=== PATIENT | male | born 1960 | race Caucasian/White ===

== ENCOUNTER 2023-10-29 13:44 | Inpatient (IN) | payer OTHER ==
[~2023-10-29] VITALS: Ht 177.8 cm; Wt 67.6 kg
[2023-10-29] MEDS ORDERED: OLANZAPINE 10 MG VIAL IM ONE ×4 (13:45→16:16)
[2023-10-29 13:58] LABS: BASOPHILS % (AUTO) 0.8 % (0.0-2.0); EOSINOPHILS # (AUTO) 0.1 K/uL (0.0-0.7); EOSINOPHILS % (AUTO) 2.2 % (0.0-7.0); HEMOGLOBIN 12.5 g/dL (12.5-16.3); LYMPHOCYTES # (AUTO) 1.7 K/uL (0.8-4.8); LYMPHOCYTES % (AUTO) 26.6 % (20.5-51.5); MEAN CORPUSCULAR HEMOGLOBIN 28.4 uug (23.8-33.4); MEAN CORPUSCULAR HGB CONC 33 g/dL (32.5-36.3); MEAN CORPUSCULAR VOLUME 86.7 fL (73.0-96.2); MONOCYTES # (AUTO) 0.7 K/uL (0.1-1.30); MONOCYTES % (AUTO) 10.2 % (0.0-11.0); NEUTROPHILS # (AUTO) 3.9 K/uL (1.8-8.9); NEUTROPHILS % (AUTO) 60.2 % (38.5-71.5); PLATELET COUNT (AUTO) 341 K/uL (152-348); RED BLOOD CELL COUNT(AUTO) 4.39 MIL/uL (4.06-5.63); RED CELL DISTRIBUTION WIDTH 16.2 % (12.1-16.2); WHITE BLOOD COUNT (AUTO) 6.5 K/uL (3.6-10.2)
[2023-10-29 14:16] LABS: DIFFERENTIAL COMMENT 1
[2023-10-29 14:29] LABS: ETHANOL < 3 MG/DL (0-10)
[2023-10-29 14:50] LABS: CALCIUM 8.7 mg/dL (8.5-10.1); CARBON DIOXIDE 29 mmol/L (21-32); CHLORIDE 103 mmol/L (98-107); CREATININE 0.8 mg/dL (0.6-1.3); GLUCOSE 121 mg/dL (74-106); POTASSIUM 3.7 mmol/L (3.5-5.1); SODIUM SERUM 140 mmol/L (136-145); UREA NITROGEN, BLOOD 20 mg/dL (7-18)
[2023-10-29 14:56] LABS: ALANINE AMINOTRANSFERASE 16 U/L (16-63); ALBUMIN 3.1 g/dL (3.4-5.0); ALKALINE PHOSPHATASE 182 U/L (50-136); ASPARTATE AMINOTRANSFERASE 20 U/L (15-37); BILIRUBIN,DIRECT 0.1 mg/dL (0.0-0.2); BILIRUBIN,TOTAL 0.3 mg/dL (0.2-1.0); TOTAL PROTEIN, SERUM 8.7 g/dL (6.4-8.2)
[2023-10-29] MEDS ORDERED: PIPERACILLIN SODIUM/TAZOBACTAM 3.375 G in IV DEXTROSE 5% 50 ML IV ONE (15:00)
[2023-10-29] MEDS ORDERED: VANCOMYCIN IV 1,000 MG in IV DEXTROSE 5% 250 ML IV ONE (15:00)
[2023-10-29] MEDS ORDERED: IV NORMAL SALINE 1000 ML BAG IV ONE ×2 (15:00→19:00)
[2023-10-29 15:08] LABS: ACETAMINOPHEN < 2.0 ug/mL (10-30)
[2023-10-29] MEDS ORDERED: PIPERACILLIN/TAZOBACTAM/D5W 50 ML IV ONE (15:43)
[2023-10-29] MEDS ORDERED: VANCOMYCIN IV 200 ML ONE (15:43)
[2023-10-29] MEDS ORDERED: LORA0.5T48 PO (15:58)
[2023-10-29] MEDS ORDERED: ONDA-104 PO (15:58)
[2023-10-29] MEDS ORDERED: CRAN450T9 PO (15:58)
[2023-10-29] MEDS ORDERED: POLY119P17 PO (15:58)
[2023-10-29] MEDS ORDERED: DIVA125C5 PO (15:58)
[2023-10-29] MEDS ORDERED: ASCO500C18 PO (15:58)
[2023-10-29] MEDS ORDERED: TERA5CAP4 PO (15:58)
[2023-10-29] MEDS ORDERED: QUET25TA PO (15:58)
[2023-10-29] MEDS ORDERED: DOCU100T2 PO (15:58)
[2023-10-29] MEDS ORDERED: BISA10SU95 RC (15:58)
[2023-10-29] MEDS ORDERED: CARB100C9 PO (15:58)
[2023-10-29] MEDS ORDERED: LACT1CAP69 PO (15:58)
[2023-10-29] MEDS ORDERED: MULT-594 PO (15:58)
[2023-10-29] MEDS ORDERED: TRAZ-182 PO (15:58)
[2023-10-29] MEDS ORDERED: RIVA20TA PO (15:58)
[2023-10-29] MEDS ORDERED: HYDR-4209 PO (15:58)
[2023-10-29] MEDS ORDERED: FINA5TAB11 PO (15:58)
[2023-10-29] MEDS ORDERED: ACET325C7 PO (15:58)
[2023-10-29] MEDS ORDERED: LORAZEPAM 2 MG/1 ML VIAL IM ONE (16:15)
[2023-10-29] MEDS ORDERED: LORAZEPAM 2 MG/1 ML VIAL ONE ×2 (16:16→17:13)
[2023-10-29] MEDS ORDERED: MORPHINE SULFATE 4 MG/1 ML DISP.SYRIN ONE (16:21)
[2023-10-29] MEDS ORDERED: ONDANSETRON 4 MG/2 ML VIAL ONE (16:21)
[2023-10-29] MEDS ORDERED: MORPHINE SULFATE 4 MG/1 ML DISP.SYRIN IV ONE (16:30)
[2023-10-29] MEDS ORDERED: ONDANSETRON 4 MG/2 ML VIAL IV ONE (16:30)
[2023-10-29] MEDS ORDERED: LORAZEPAM 2 MG/1 ML VIAL IV ONE (17:15)
[2023-10-29] MEDS ORDERED: REMEDY ESSENTIAL ZINC PASTE 113 GM TP PRN (19:00)
[2023-10-29] MEDS ORDERED: ONDANSETRON 4 MG/2 ML VIAL IV PRN (19:00)
[2023-10-29] MEDS ORDERED: ACETAMINOPHEN 325 MG TABLET PO PRN (19:00)
[2023-10-29] MEDS ORDERED: MAGNESIUM HYDROXIDE 30 ML LIQUID UDC PO PRN (19:00)
[2023-10-29] MEDS ORDERED: LORAZEPAM 2 MG/1 ML VIAL IV PRN (19:15)
[2023-10-29] MEDS ORDERED: PIPERACILLIN SODIUM/TAZOBACTAM 4.5 G in IV DEXTROSE 5% 50 ML IV SCH (22:00)
[2023-10-29 22:15] VITALS: BP 142/69; TEMP 98.8; O2SAT 93
[2023-10-29] MEDS ORDERED: PIPERACILLIN/TAZO 4.5 GM VIAL IV ONE ×2 (23:18)
[2023-10-29] MEDS: IV 1/2NS 1000 ML 1,000 ML IV PRN (23:30)
[2023-10-29] MEDS: PIPERACILLIN SODIUM/TAZOBACTAM 4.5 G in IV DEXTROSE 5% 50 ML IV SCH (23:30)
[2023-10-30 04:00] VITALS: BP 113/71; TEMP 98.8; O2SAT 93
[2023-10-30] MEDS: PIPERACILLIN SODIUM/TAZOBACTAM 4.5 G in IV DEXTROSE 5% 50 ML IV SCH (05:50)
[2023-10-30] MEDS ORDERED: LORAZEPAM 2 MG/1 ML VIAL IV PRN (06:00)
[2023-10-30 07:45] LABS: ALBUMIN 2.4 g/dL (3.4-5.0); BILIRUBIN,TOTAL 0.6 mg/dL (0.2-1.0); CALCIUM 8.1 mg/dL (8.5-10.1); CREATININE 0.7 mg/dL (0.6-1.3); MAGNESIUM 1.9 mg/dL (1.8-2.4); PHOSPHOROUS 3.7 mg/dL (2.5-4.9); POTASSIUM 3.4 mmol/L (3.5-5.1); TOTAL PROTEIN, SERUM 6.7 g/dL (6.4-8.2)
[2023-10-30 07:55] LABS: BASOPHILS % (AUTO) 0.6 % (0.0-2.0); EOSINOPHILS # (AUTO) 0.2 K/uL (0.0-0.7); HEMATOCRIT 30.3 % (36.7-47.1); HEMOGLOBIN 10.2 g/dL (12.5-16.3); LYMPHOCYTES # (AUTO) 1.5 K/uL (0.8-4.8); LYMPHOCYTES % (AUTO) 17.3 % (20.5-51.5); MEAN CORPUSCULAR HEMOGLOBIN 29.1 uug (23.8-33.4); MEAN CORPUSCULAR HGB CONC 34 g/dL (32.5-36.3); MEAN CORPUSCULAR VOLUME 86.3 fL (73.0-96.2); MONOCYTES # (AUTO) 0.9 K/uL (0.1-1.30); NEUTROPHILS # (AUTO) 5.9 K/uL (1.8-8.9); NEUTROPHILS % (AUTO) 70.1 % (38.5-71.5); PLATELET COUNT (AUTO) 307 K/uL (152-348); RED BLOOD CELL COUNT(AUTO) 3.51 MIL/uL (4.06-5.63); RED CELL DISTRIBUTION WIDTH 16.3 % (12.1-16.2); WHITE BLOOD COUNT (AUTO) 8.5 K/uL (3.6-10.2)
[2023-10-30 08:00] VITALS: BP 94/67; TEMP 98.8; O2SAT 99
[2023-10-30 08:08] LABS: DIFFERENTIAL COMMENT 1
[2023-10-30] MEDS: MORPHINE SULFATE 2 MG/1 ML DISP.SYRIN IV PRN (09:26)
[2023-10-30] MEDS ORDERED: CLONAZEPAM ODT/TDIS 0.5 MG TAB.RAPDIS SL PRN (10:15)
[2023-10-30] MEDS ORDERED: POTASSIUM CHLORIDE 20 MEQ POWDER PACKET GT ONE (10:45)
[2023-10-30] MEDS: [UNRECOGNIZED DRUG - OTHER] SL PRN ×2 (10:45→20:35)
[2023-10-30] MEDS: CLONAZEPAM 0.25 MG SL PRN ×2 (10:45→20:35)
[2023-10-30 11:52] VITALS: BP 123/76; TEMP 98.2; O2SAT 94
[2023-10-30] MEDS ORDERED: OLANZAPINE 10 MG VIAL IM ONE (12:00)
[2023-10-30] MEDS: IV 1/2NS 1000 ML 1,000 ML IV PRN (13:35)
[2023-10-30] MEDS: PIPERACILLIN SODIUM/TAZOBACTAM 3.375 G in IV DEXTROSE 5% 100 ML IV SCH ×2 (13:37→22:48)
[2023-10-30] MEDS ORDERED: [UNRECOGNIZED DRUG - CODE] PO (14:31)
[2023-10-30 16:08] VITALS: BP 127/74; TEMP 97.6; O2SAT 95
[2023-10-30 20:47] VITALS: BP 115/69; TEMP 98.2; O2SAT 96
[2023-10-31 04:55] VITALS: BP 130/73; TEMP 98.3; O2SAT 93
[2023-10-31] MEDS: PIPERACILLIN SODIUM/TAZOBACTAM 3.375 G in IV DEXTROSE 5% 100 ML IV SCH ×3 (06:21→22:00)
[2023-10-31] MEDS ORDERED: OLANZAPINE 10 MG VIAL IM ONE (08:00)
[2023-10-31 08:05] LABS: BASOPHILS % (AUTO) 0.6 % (0.0-2.0); EOSINOPHILS # (AUTO) 0.3 K/uL (0.0-0.7); EOSINOPHILS % (AUTO) 3.9 % (0.0-7.0); HEMATOCRIT 33.8 % (36.7-47.1); HEMOGLOBIN 11.2 g/dL (12.5-16.3); LYMPHOCYTES # (AUTO) 1.7 K/uL (0.8-4.8); LYMPHOCYTES % (AUTO) 26.2 % (20.5-51.5); MEAN CORPUSCULAR HEMOGLOBIN 28.6 uug (23.8-33.4); MEAN CORPUSCULAR HGB CONC 33 g/dL (32.5-36.3); MEAN CORPUSCULAR VOLUME 85.9 fL (73.0-96.2); MONOCYTES # (AUTO) 0.8 K/uL (0.1-1.30); MONOCYTES % (AUTO) 11.8 % (0.0-11.0); NEUTROPHILS # (AUTO) 3.8 K/uL (1.8-8.9); NEUTROPHILS % (AUTO) 57.5 % (38.5-71.5); PLATELET COUNT (AUTO) 306 K/uL (152-348); RED BLOOD CELL COUNT(AUTO) 3.93 MIL/uL (4.06-5.63); RED CELL DISTRIBUTION WIDTH 16.1 % (12.1-16.2); WHITE BLOOD COUNT (AUTO) 6.6 K/uL (3.6-10.2)
[2023-10-31 08:25] LABS: DIFFERENTIAL COMMENT 1
[2023-10-31 08:59] LABS: CALCIUM 8.2 mg/dL (8.5-10.1); CREATININE 0.7 mg/dL (0.6-1.3); POTASSIUM 3.3 mmol/L (3.5-5.1)
[2023-10-31] MEDS ORDERED: POLYETHYLENE GLYCOL 3350 238 GM POWDER PO PRN (10:15)
[2023-10-31] MEDS ORDERED: BISACODYL 10 MG SUPP.RECT RC PRN (10:15)
[2023-10-31] MEDS ORDERED: MIRALAX 17 GM POWD.PACK PO PRN (11:02)
[2023-10-31] MEDS ORDERED: DIVALPROEX SPRINKLE 125 MG CAP.SPRINK PO SCH (11:30)
[2023-10-31] MEDS: DIVALPROEX SPRINKLE 125 MG CAP.SPRINK PO SCH ×2 (11:43→16:46)
[2023-10-31] MEDS: FINASTERIDE 5 MG TABLET PO SCH (11:43)
[2023-10-31] MEDS: OLANZAPINE 2.5 MG TABLET PO SCH ×2 (11:43→16:47)
[2023-10-31 12:00] VITALS: BP 111/72; TEMP 98; O2SAT 95
[2023-10-31] MEDS: CARBAMAZEPINE 200 MG TABLET PO SCH ×2 (13:42→16:47)
[2023-10-31] MEDS: IV 1/2NS 1000 ML 1,000 ML IV PRN (13:43)
[2023-10-31] MEDS: MUPIROCIN 2% OINT 22 GM TUBE NS SCH ×2 (15:07→21:02)
[2023-10-31 16:39] VITALS: BP 120/75; TEMP 98.8; O2SAT 94
[2023-10-31] MEDS ORDERED: POTASSIUM CHLORIDE 20 MEQ TAB.PRT.SR PO ONE (17:00)
[2023-10-31] MEDS: RIVAROXABAN 10 MG TABLET PO SCH (17:33)
[2023-10-31 20:00] VITALS: BP 132/90; TEMP 97.8; O2SAT 94
[2023-10-31] MEDS: ACIDOPHILUS/BULGARICUS CHEW TAB PO SCH (20:43)
[2023-10-31] MEDS: DOCUSATE SODIUM 100 MG CAPSULE PO SCH (20:43)
[2023-10-31] MEDS: TRAZODONE 50 MG TABLET PO SCH (20:44)
[2023-10-31] MEDS: TERAZOSIN 5 MG CAPSULE PO SCH (20:44)
[2023-10-31] MEDS ORDERED: MUPIROCIN 2% OINT 22 GM TUBE NS SCH (21:00)
[2023-10-31] MEDS: LORAZEPAM 0.5 MG TABLET PO PRN (21:28)
[2023-11-01] MEDS: MORPHINE SULFATE 2 MG/1 ML DISP.SYRIN IV PRN (01:26)
[2023-11-01 04:00] VITALS: BP 126/68; TEMP 98; O2SAT 100
[2023-11-01] MEDS: PIPERACILLIN SODIUM/TAZOBACTAM 3.375 G in IV DEXTROSE 5% 100 ML IV SCH ×3 (06:18→23:01)
[2023-11-01] MEDS ORDERED: BISACODYL 10 MG SUPP.RECT RC PRN (06:39)
[2023-11-01 08:21] LABS: CALCIUM 8.3 mg/dL (8.5-10.1); CREATININE 0.8 mg/dL (0.6-1.3)
[2023-11-01 08:34] LABS: BASOPHILS % (AUTO) 0.6 % (0.0-2.0); EOSINOPHILS # (AUTO) 0.1 K/uL (0.0-0.7); EOSINOPHILS % (AUTO) 1.6 % (0.0-7.0); HEMOGLOBIN 11.2 g/dL (12.5-16.3); LYMPHOCYTES # (AUTO) 1.3 K/uL (0.8-4.8); LYMPHOCYTES % (AUTO) 18.2 % (20.5-51.5); MEAN CORPUSCULAR HEMOGLOBIN 28.5 uug (23.8-33.4); MEAN CORPUSCULAR HGB CONC 33 g/dL (32.5-36.3); MEAN CORPUSCULAR VOLUME 86.6 fL (73.0-96.2); MONOCYTES # (AUTO) 0.8 K/uL (0.1-1.30); MONOCYTES % (AUTO) 10.4 % (0.0-11.0); NEUTROPHILS % (AUTO) 69.2 % (38.5-71.5); PLATELET COUNT (AUTO) 308 K/uL (152-348); RED BLOOD CELL COUNT(AUTO) 3.93 MIL/uL (4.06-5.63); RED CELL DISTRIBUTION WIDTH 16.1 % (12.1-16.2); WHITE BLOOD COUNT (AUTO) 7.2 K/uL (3.6-10.2)
[2023-11-01 08:35] LABS: DIFFERENTIAL COMMENT 1
[2023-11-01] MEDS: MUPIROCIN 2% OINT 22 GM TUBE NS SCH ×2 (09:00→22:04)
[2023-11-01] MEDS: DOCUSATE SODIUM 100 MG CAPSULE PO SCH ×2 (09:00→21:22)
[2023-11-01] MEDS ORDERED: OLANZAPINE 10 MG VIAL IM ONE (09:15)
[2023-11-01] MEDS: MULTIVIT, IRON, MIN NO. 8, FA TABLET PO SCH (09:36)
[2023-11-01] MEDS: OLANZAPINE 2.5 MG TABLET PO SCH ×5 (09:36→21:22)
[2023-11-01] MEDS: ACIDOPHILUS/BULGARICUS CHEW TAB PO SCH ×2 (09:36→21:22)
[2023-11-01] MEDS: ASCORBIC ACID 500 MG TABLET PO SCH (09:36)
[2023-11-01] MEDS: FINASTERIDE 5 MG TABLET PO SCH (09:36)
[2023-11-01] MEDS: CARBAMAZEPINE 200 MG TABLET PO SCH ×3 (09:37→17:40)
[2023-11-01] MEDS: DIVALPROEX SPRINKLE 125 MG CAP.SPRINK PO SCH ×2 (09:37→17:40)
[2023-11-01] MEDS: POTASSIUM CHLORIDE 10 MEQ TAB.PRT.SR PO SCH ×2 (10:52→12:45)
[2023-11-01 12:00] VITALS: BP 130/65; TEMP 98; O2SAT 100
[2023-11-01 12:14] LABS: THYROID STIMULATING HORMONE 1.514 mIU/mL (0.358-3.740)
[2023-11-01 15:46] VITALS: BP 119/60; TEMP 98; O2SAT 98
[2023-11-01] MEDS: RIVAROXABAN 10 MG TABLET PO SCH (17:39)
[2023-11-01 20:00] VITALS: BP 128/77; TEMP 98.8; O2SAT 100
[2023-11-01] MEDS: TRAZODONE 50 MG TABLET PO SCH (21:22)
[2023-11-01] MEDS: TERAZOSIN 5 MG CAPSULE PO SCH (21:29)
[2023-11-01] MEDS: LORAZEPAM 0.5 MG TABLET PO PRN (21:30)
[2023-11-01] MEDS: IV 1/2NS 1000 ML 1,000 ML IV PRN (22:14)
[2023-11-02 04:00] VITALS: BP 120/74; TEMP 98.2; O2SAT 93
[2023-11-02] MEDS: PIPERACILLIN SODIUM/TAZOBACTAM 3.375 G in IV DEXTROSE 5% 100 ML IV SCH ×3 (05:40→21:28)
[2023-11-02 07:31] LABS: CALCIUM 8.1 mg/dL (8.5-10.1); CREATININE 0.7 mg/dL (0.6-1.3)
[2023-11-02] MEDS: DOCUSATE SODIUM 100 MG CAPSULE PO SCH ×2 (09:00→21:11)
[2023-11-02] MEDS: OLANZAPINE 2.5 MG TABLET PO SCH ×4 (09:00→17:14)
[2023-11-02] MEDS: MULTIVIT, IRON, MIN NO. 8, FA TABLET PO SCH (09:00)
[2023-11-02 09:04] LABS: POTASSIUM 2.8 mmol/L (3.5-5.1)
[2023-11-02] MEDS: CARBAMAZEPINE 200 MG TABLET PO SCH ×4 (09:06→17:15)
[2023-11-02] MEDS: ACIDOPHILUS/BULGARICUS CHEW TAB PO SCH ×2 (09:06→21:12)
[2023-11-02] MEDS: FINASTERIDE 5 MG TABLET PO SCH (09:07)
[2023-11-02] MEDS: DIVALPROEX SPRINKLE 125 MG CAP.SPRINK PO SCH ×2 (09:07→17:15)
[2023-11-02] MEDS: ASCORBIC ACID 500 MG TABLET PO SCH (09:07)
[2023-11-02] MEDS: MUPIROCIN 2% OINT 22 GM TUBE NS SCH ×2 (09:08→21:10)
[2023-11-02] MEDS: POTASSIUM CHLORIDE 20 MEQ POWDER PACKET PO ONE ×2 (09:15→09:20)
[2023-11-02] MEDS: POTASSIUM CHLORIDE 50 ML IV SCH ×4 (09:20→12:52)
[2023-11-02 12:00] VITALS: BP 152/81; TEMP 97.2; O2SAT 97
[2023-11-02 16:00] VITALS: BP 158/80; TEMP 97.2; O2SAT 97
[2023-11-02] MEDS: RIVAROXABAN 10 MG TABLET PO SCH ×2 (17:20→18:00)
[2023-11-02 20:00] VITALS: BP 127/74; TEMP 98; O2SAT 96
[2023-11-02] MEDS: TERAZOSIN 5 MG CAPSULE PO SCH (21:12)
[2023-11-02] MEDS: TRAZODONE 50 MG TABLET PO SCH (21:12)
[2023-11-03] MEDS: LORAZEPAM 0.5 MG TABLET PO PRN ×2 (01:25→23:45)
[2023-11-03 04:00] VITALS: BP 119/67; TEMP 98.8; O2SAT 92
[2023-11-03] MEDS: PIPERACILLIN SODIUM/TAZOBACTAM 3.375 G in IV DEXTROSE 5% 100 ML IV SCH ×2 (06:07→15:02)
[2023-11-03 06:28] LABS: CALCIUM 7.8 mg/dL (8.5-10.1); CREATININE 0.7 mg/dL (0.6-1.3)
[2023-11-03 06:36] LABS: POTASSIUM 2.1 mmol/L (3.5-5.1)
[2023-11-03 06:52] LABS: BASOPHILS % (AUTO) 0.2 % (0.0-2.0); DIFFERENTIAL COMMENT 1; HEMATOCRIT 33.5 % (36.7-47.1); HEMOGLOBIN 11.1 g/dL (12.5-16.3); LYMPHOCYTES % (AUTO) 5.8 % (20.5-51.5); MEAN CORPUSCULAR HEMOGLOBIN 28.5 uug (23.8-33.4); MEAN CORPUSCULAR HGB CONC 33 g/dL (32.5-36.3); MEAN CORPUSCULAR VOLUME 86.3 fL (73.0-96.2); MONOCYTES # (AUTO) 1.2 K/uL (0.1-1.30); MONOCYTES % (AUTO) 6.9 % (0.0-11.0); NEUTROPHILS # (AUTO) 14.7 K/uL (1.8-8.9); NEUTROPHILS % (AUTO) 87.1 % (38.5-71.5); PLATELET COUNT (AUTO) 294 K/uL (152-348); RED BLOOD CELL COUNT(AUTO) 3.88 MIL/uL (4.06-5.63); RED CELL DISTRIBUTION WIDTH 16.4 % (12.1-16.2); WHITE BLOOD COUNT (AUTO) 16.9 K/uL (3.6-10.2)
[2023-11-03] MEDS: IV 1/2NS 1000 ML 1,000 ML IV PRN (08:04)
[2023-11-03] MEDS: MUPIROCIN 2% OINT 22 GM TUBE NS SCH ×2 (09:38→21:18)
[2023-11-03] MEDS: FINASTERIDE 5 MG TABLET PO SCH (09:39)
[2023-11-03] MEDS: DOCUSATE SODIUM 100 MG CAPSULE PO SCH ×2 (09:39→21:18)
[2023-11-03] MEDS: MULTIVIT, IRON, MIN NO. 8, FA TABLET PO SCH (09:39)
[2023-11-03] MEDS: ASCORBIC ACID 500 MG TABLET PO SCH (09:39)
[2023-11-03] MEDS: DIVALPROEX SPRINKLE 125 MG CAP.SPRINK PO SCH ×2 (09:40→16:31)
[2023-11-03] MEDS: OLANZAPINE 2.5 MG TABLET PO SCH ×4 (09:43→21:20)
[2023-11-03] MEDS: ACIDOPHILUS/BULGARICUS CHEW TAB PO SCH ×2 (09:43→21:19)
[2023-11-03] MEDS: POTASSIUM CHLORIDE 50 ML IV SCH ×6 (09:56→15:19)
[2023-11-03] MEDS: CARBAMAZEPINE 200 MG TABLET PO SCH ×3 (10:58→16:31)
[2023-11-03 12:00] VITALS: BP 129/61; TEMP 97.6; O2SAT 98
[2023-11-03] MEDS ORDERED: OLANZAPINE 10 MG VIAL IM ONE (12:45)
[2023-11-03] MEDS ORDERED: LORAZEPAM 2 MG/1 ML VIAL IV PRN (15:18)
[2023-11-03 15:21] LABS: CALCIUM 8.1 mg/dL (8.5-10.1); CARBON DIOXIDE 23 mmol/L (21-32); CHLORIDE 110 mmol/L (98-107); CREATININE 0.6 mg/dL (0.6-1.3); GLUCOSE 91 mg/dL (74-106); SODIUM SERUM 144 mmol/L (136-145); UREA NITROGEN, BLOOD 21 mg/dL (7-18)
[2023-11-03 15:53] LABS: POTASSIUM 2.5 mmol/L (3.5-5.1)
[2023-11-03 16:00] VITALS: BP 134/63; TEMP 97; O2SAT 96
[2023-11-03] MEDS ORDERED: POTASSIUM CHLORIDE 10 MEQ in IV 1/2NS 1000 ML 1,000 ML IV PRN (16:25)
[2023-11-03] MEDS: RIVAROXABAN 10 MG TABLET PO SCH (17:25)
[2023-11-03 20:00] VITALS: BP 126/75; TEMP 97.6; O2SAT 99
[2023-11-03] MEDS: TRAZODONE 50 MG TABLET PO SCH (21:19)
[2023-11-03] MEDS: TERAZOSIN 5 MG CAPSULE PO SCH (21:20)
[2023-11-04 04:00] VITALS: BP 121/72; TEMP 97.8; O2SAT 90
[2023-11-04 07:09] LABS: BASOPHILS % (AUTO) 0.2 % (0.0-2.0); EOSINOPHILS # (AUTO) 0.1 K/uL (0.0-0.7); EOSINOPHILS % (AUTO) 1.3 % (0.0-7.0); HEMATOCRIT 31.8 % (36.7-47.1); HEMOGLOBIN 10.5 g/dL (12.5-16.3); LYMPHOCYTES # (AUTO) 1.3 K/uL (0.8-4.8); LYMPHOCYTES % (AUTO) 13.6 % (20.5-51.5); MEAN CORPUSCULAR HEMOGLOBIN 28.6 uug (23.8-33.4); MEAN CORPUSCULAR HGB CONC 33 g/dL (32.5-36.3); MEAN CORPUSCULAR VOLUME 86.4 fL (73.0-96.2); MONOCYTES # (AUTO) 0.8 K/uL (0.1-1.30); MONOCYTES % (AUTO) 8.9 % (0.0-11.0); NEUTROPHILS # (AUTO) 7.1 K/uL (1.8-8.9); PLATELET COUNT (AUTO) 293 K/uL (152-348); RED BLOOD CELL COUNT(AUTO) 3.68 MIL/uL (4.06-5.63); RED CELL DISTRIBUTION WIDTH 16.1 % (12.1-16.2); WHITE BLOOD COUNT (AUTO) 9.4 K/uL (3.6-10.2)
[2023-11-04 07:41] LABS: ALANINE AMINOTRANSFERASE 19 U/L (16-63); ALBUMIN 2.2 g/dL (3.4-5.0); ALKALINE PHOSPHATASE 105 U/L (50-136); ASPARTATE AMINOTRANSFERASE 18 U/L (15-37); BILIRUBIN,TOTAL 0.5 mg/dL (0.2-1.0); CALCIUM 8.1 mg/dL (8.5-10.1); CARBAMAZEPINE (TEGRETOL) 2.9 ug/mL (4.0-12.0); CARBON DIOXIDE 25 mmol/L (21-32); CHLORIDE 111 mmol/L (98-107); CREATININE 0.6 mg/dL (0.6-1.3); GLUCOSE 95 mg/dL (74-106); MAGNESIUM 1.9 mg/dL (1.8-2.4); PHOSPHOROUS 2.5 mg/dL (2.5-4.9); SODIUM SERUM 145 mmol/L (136-145); TOTAL PROTEIN, SERUM 6.8 g/dL (6.4-8.2); UREA NITROGEN, BLOOD 23 mg/dL (7-18); VALPROIC ACID 6 ug/mL (50-100)
[2023-11-04 07:46] LABS: DIFFERENTIAL COMMENT 1
[2023-11-04 07:54] LABS: POTASSIUM 2.3 mmol/L (3.5-5.1)
[2023-11-04] MEDS: LORAZEPAM 0.5 MG TABLET PO PRN (10:35)
[2023-11-04] MEDS: MULTIVIT, IRON, MIN NO. 8, FA TABLET PO SCH (10:36)
[2023-11-04] MEDS: FINASTERIDE 5 MG TABLET PO SCH (10:36)
[2023-11-04] MEDS: ACIDOPHILUS/BULGARICUS CHEW TAB PO SCH ×2 (10:36→21:00)
[2023-11-04] MEDS: CARBAMAZEPINE 200 MG TABLET PO SCH ×3 (10:36→16:31)
[2023-11-04] MEDS: DOCUSATE SODIUM 100 MG CAPSULE PO SCH ×2 (10:36→21:00)
[2023-11-04] MEDS: ASCORBIC ACID 500 MG TABLET PO SCH (10:36)
[2023-11-04] MEDS: OLANZAPINE 2.5 MG TABLET PO SCH (10:36)
[2023-11-04] MEDS: DIVALPROEX SPRINKLE 125 MG CAP.SPRINK PO SCH (10:37)
[2023-11-04] MEDS ORDERED: POTASSIUM CHLORIDE 20 MEQ POWDER PACKET PO ONE ×3 (11:00→17:00)
[2023-11-04 11:30] VITALS: BP 106/69; TEMP 97.2; O2SAT 92
[2023-11-04] MEDS: risperiDONE-M 0.5 MG TAB.RAPDIS PO SCH ×3 (13:13→21:00)
[2023-11-04] MEDS: LORAZEPAM 0.5 MG TABLET PO SCH ×3 (13:13→21:00)
[2023-11-04] MEDS: MUPIROCIN 2% OINT 22 GM TUBE NS SCH ×2 (13:14→21:00)
[2023-11-04] MEDS: IV 1/2NS 1000 ML 1,000 ML IV PRN (14:10)
[2023-11-04 16:15] VITALS: BP 99/62; TEMP 98.1; O2SAT 92
[2023-11-04 16:19] LABS: ALANINE AMINOTRANSFERASE 21 U/L (16-63); ALBUMIN 2.1 g/dL (3.4-5.0); ALKALINE PHOSPHATASE 97 U/L (50-136); ASPARTATE AMINOTRANSFERASE 13 U/L (15-37); BILIRUBIN,TOTAL 0.3 mg/dL (0.2-1.0); CALCIUM 7.9 mg/dL (8.5-10.1); CARBON DIOXIDE 25 mmol/L (21-32); CHLORIDE 110 mmol/L (98-107); CREATININE 0.5 mg/dL (0.6-1.3); GLUCOSE 120 mg/dL (74-106); MAGNESIUM 1.8 mg/dL (1.8-2.4); POTASSIUM 3.2 mmol/L (3.5-5.1); SODIUM SERUM 142 mmol/L (136-145); TOTAL PROTEIN, SERUM 6.4 g/dL (6.4-8.2); UREA NITROGEN, BLOOD 20 mg/dL (7-18)
[2023-11-04] MEDS ORDERED: CARBAMAZEPINE 200 MG TABLET PO SCH (17:00)
[2023-11-04] MEDS: RIVAROXABAN 10 MG TABLET PO SCH (18:49)
[2023-11-04 20:55] VITALS: BP 139/71; TEMP 98.3; O2SAT 91
[2023-11-04] MEDS: TRAZODONE 50 MG TABLET PO SCH (21:00)
[2023-11-04] MEDS: TERAZOSIN 5 MG CAPSULE PO SCH (21:00)
[2023-11-05 04:55] VITALS: BP 124/65; TEMP 98.4; O2SAT 95
[2023-11-05] MEDS: IV 1/2NS 1000 ML 1,000 ML IV PRN (06:51)
[2023-11-05 08:07] LABS: CALCIUM 7.7 mg/dL (8.5-10.1); CARBON DIOXIDE 25 mmol/L (21-32); CHLORIDE 107 mmol/L (98-107); CREATININE 0.5 mg/dL (0.6-1.3); GLUCOSE 90 mg/dL (74-106); SODIUM SERUM 142 mmol/L (136-145); UREA NITROGEN, BLOOD 11 mg/dL (7-18)
[2023-11-05 08:28] LABS: POTASSIUM 2.5 mmol/L (3.5-5.1)
[2023-11-05] MEDS: DOCUSATE SODIUM 100 MG CAPSULE PO SCH ×2 (09:00→20:25)
[2023-11-05] MEDS: LORAZEPAM 0.5 MG TABLET PO SCH ×4 (09:00→20:26)
[2023-11-05] MEDS: MUPIROCIN 2% OINT 22 GM TUBE NS SCH ×2 (09:00→21:26)
[2023-11-05] MEDS: CARBAMAZEPINE 200 MG TABLET PO SCH ×3 (09:00→18:06)
[2023-11-05] MEDS ORDERED: risperiDONE-M 0.5 MG TAB.RAPDIS PO SCH (09:00)
[2023-11-05] MEDS: ACIDOPHILUS/BULGARICUS CHEW TAB PO SCH ×2 (09:00→20:25)
[2023-11-05] MEDS ORDERED: POTASSIUM CHLORIDE 50 ML IV SCH (10:45)
[2023-11-05] MEDS ORDERED: POTASSIUM CHLORIDE 20 MEQ TAB.PRT.SR PO ONE (10:45)
[2023-11-05] MEDS ORDERED: PIPERACILLIN SODIUM/TAZOBACTAM 3.375 G in IV DEXTROSE 5% 50 ML IV SCH (10:45)
[2023-11-05 11:21] VITALS: BP 119/68; TEMP 98.4; O2SAT 93
[2023-11-05] MEDS: risperiDONE-M 0.5 MG TAB.RAPDIS PO SCH ×3 (13:16→20:25)
[2023-11-05] MEDS: MULTIVIT, IRON, MIN NO. 8, FA TABLET PO SCH (13:16)
[2023-11-05] MEDS: FINASTERIDE 5 MG TABLET PO SCH (13:17)
[2023-11-05] MEDS: ASCORBIC ACID 500 MG TABLET PO SCH (13:17)
[2023-11-05] MEDS: PIPERACILLIN SODIUM/TAZOBACTAM 3.375 G in IV DEXTROSE 5% 100 ML IV SCH ×2 (14:04→23:28)
[2023-11-05 14:30] LABS: CARBON DIOXIDE 28 mmol/L (21-32); CREATININE 0.6 mg/dL (0.6-1.3); GLUCOSE 112 mg/dL (74-106); UREA NITROGEN, BLOOD 10 mg/dL (7-18)
[2023-11-05 14:37] LABS: CALCIUM 7.9 mg/dL (8.5-10.1)
[2023-11-05 14:48] LABS: CHLORIDE 105 mmol/L (98-107); SODIUM SERUM 141 mmol/L (136-145)
[2023-11-05 15:12] LABS: POTASSIUM 2.7 mmol/L (3.5-5.1)
[2023-11-05 15:45] LABS: *CHLORIDE RNDM,URINE 222 mmol/L (100-250); *POTASSIUM RNDM,URINE 19 mmol/L (25-125); *SODIUM RNDM,URINE 189 mmol/L (40-220)
[2023-11-05 15:56] VITALS: BP 107/62; TEMP 98.5; O2SAT 95
[2023-11-05] MEDS: POTASSIUM CHLORIDE 50 ML IV SCH ×4 (15:59→21:42)
[2023-11-05] MEDS: RIVAROXABAN 10 MG TABLET PO SCH (18:09)
[2023-11-05] MEDS ORDERED: NORMAL SALINE IV SCH (19:15)
[2023-11-05] MEDS ORDERED: POTASSIUM CHLORIDE IV SCH (19:15)
[2023-11-05] MEDS: TRAZODONE 50 MG TABLET PO SCH (20:25)
[2023-11-05] MEDS: TERAZOSIN 5 MG CAPSULE PO SCH (20:35)
[2023-11-05 20:48] VITALS: BP 121/73; TEMP 98.5; O2SAT 94
[2023-11-06] MEDS: PIPERACILLIN SODIUM/TAZOBACTAM 3.375 G in IV DEXTROSE 5% 100 ML IV SCH ×3 (06:02→22:37)
[2023-11-06] MEDS: LORAZEPAM 0.5 MG TABLET PO SCH ×4 (09:55→20:59)
[2023-11-06] MEDS: CARBAMAZEPINE 200 MG TABLET PO SCH ×3 (09:56→17:27)
[2023-11-06] MEDS: MULTIVIT, IRON, MIN NO. 8, FA TABLET PO SCH (09:57)
[2023-11-06] MEDS: DOCUSATE SODIUM 100 MG CAPSULE PO SCH ×2 (09:57→20:58)
[2023-11-06] MEDS: FINASTERIDE 5 MG TABLET PO SCH (09:57)
[2023-11-06] MEDS: ASCORBIC ACID 500 MG TABLET PO SCH (09:57)
[2023-11-06] MEDS: ACIDOPHILUS/BULGARICUS CHEW TAB PO SCH ×2 (09:57→20:59)
[2023-11-06] MEDS: POTASSIUM CHLORIDE 50 ML IV SCH ×4 (09:59→14:47)
[2023-11-06] MEDS: risperiDONE-M 0.5 MG TAB.RAPDIS PO SCH ×4 (11:06→20:58)
[2023-11-06] MEDS: MUPIROCIN 2% OINT 22 GM TUBE NS SCH ×2 (11:06→21:00)
[2023-11-06 11:13] VITALS: BP 108/70; TEMP 97.8; O2SAT 94
[2023-11-06] MEDS: IV 1/2NS 1000 ML 1,000 ML IV PRN (14:55)
[2023-11-06 15:31] VITALS: BP 143/85; TEMP 97.8; O2SAT 96
[2023-11-06] MEDS: RIVAROXABAN 10 MG TABLET PO SCH (17:29)
[2023-11-06] MEDS: TRAZODONE 50 MG TABLET PO SCH (20:57)
[2023-11-06] MEDS: TERAZOSIN 5 MG CAPSULE PO SCH (20:58)
[2023-11-06 22:31] VITALS: BP 131/81; TEMP 98; O2SAT 96
[2023-11-07 04:55] VITALS: BP 108/57; TEMP 98.3; O2SAT 95
[2023-11-07] MEDS: PIPERACILLIN SODIUM/TAZOBACTAM 3.375 G in IV DEXTROSE 5% 100 ML IV SCH ×3 (06:00→22:33)
[2023-11-07 06:59] LABS: BASOPHILS # (AUTO) 0.1 K/UL (0.0-0.2); BASOPHILS % (AUTO) 0.8 % (0.0-2.0); EOSINOPHILS # (AUTO) 0.5 K/uL (0.0-0.7); HEMATOCRIT 35.8 % (36.7-47.1); HEMOGLOBIN 11.8 g/dL (12.5-16.3); LYMPHOCYTES # (AUTO) 2.1 K/uL (0.8-4.8); LYMPHOCYTES % (AUTO) 29.7 % (20.5-51.5); MEAN CORPUSCULAR HEMOGLOBIN 28.2 uug (23.8-33.4); MEAN CORPUSCULAR HGB CONC 33 g/dL (32.5-36.3); MEAN CORPUSCULAR VOLUME 85.9 fL (73.0-96.2); MONOCYTES # (AUTO) 0.6 K/uL (0.1-1.30); MONOCYTES % (AUTO) 8.6 % (0.0-11.0); NEUTROPHILS # (AUTO) 3.8 K/uL (1.8-8.9); NEUTROPHILS % (AUTO) 53.9 % (38.5-71.5); PLATELET COUNT (AUTO) 404 K/uL (152-348); RED BLOOD CELL COUNT(AUTO) 4.17 MIL/uL (4.06-5.63)
[2023-11-07 07:00] LABS: DIFFERENTIAL COMMENT 1
[2023-11-07 07:07] LABS: ALANINE AMINOTRANSFERASE 15 U/L (16-63); ALBUMIN 2.4 g/dL (3.4-5.0); ALKALINE PHOSPHATASE 100 U/L (50-136); ASPARTATE AMINOTRANSFERASE 15 U/L (15-37); BILIRUBIN,TOTAL 0.5 mg/dL (0.2-1.0); CALCIUM 8.3 mg/dL (8.5-10.1); CARBON DIOXIDE 24 mmol/L (21-32); CHLORIDE 105 mmol/L (98-107); CREATININE 0.6 mg/dL (0.6-1.3); GLUCOSE 81 mg/dL (74-106); MAGNESIUM 1.9 mg/dL (1.8-2.4); PHOSPHOROUS 4.1 mg/dL (2.5-4.9); POTASSIUM 3.3 mmol/L (3.5-5.1); SODIUM SERUM 140 mmol/L (136-145); TOTAL PROTEIN, SERUM 7.2 g/dL (6.4-8.2); UREA NITROGEN, BLOOD 6 mg/dL (7-18)
[2023-11-07] MEDS: risperiDONE-M 0.5 MG TAB.RAPDIS PO SCH ×4 (09:36→22:30)
[2023-11-07] MEDS: ASCORBIC ACID 500 MG TABLET PO SCH (09:36)
[2023-11-07] MEDS: MULTIVIT, IRON, MIN NO. 8, FA TABLET PO SCH (09:36)
[2023-11-07] MEDS: ACIDOPHILUS/BULGARICUS CHEW TAB PO SCH ×2 (09:36→22:31)
[2023-11-07] MEDS: LORAZEPAM 0.5 MG TABLET PO SCH ×5 (09:36→23:15)
[2023-11-07] MEDS: CARBAMAZEPINE 200 MG TABLET PO SCH ×3 (09:37→17:21)
[2023-11-07] MEDS: DOCUSATE SODIUM 100 MG CAPSULE PO SCH ×2 (09:37→22:32)
[2023-11-07] MEDS: FINASTERIDE 5 MG TABLET PO SCH (09:37)
[2023-11-07 10:15] VITALS: BP 106/66; TEMP 98; O2SAT 97
[2023-11-07] MEDS ORDERED: POTASSIUM CHLORIDE 20 MEQ TAB.PRT.SR PO ONE (10:15)
[2023-11-07] MEDS: IV 1/2NS 1000 ML 1,000 ML IV PRN (12:31)
[2023-11-07 15:04] VITALS: BP 109/60; TEMP 97.1; O2SAT 97
[2023-11-07 16:00] VITALS: BP 121/63; TEMP 97.7; O2SAT 97
[2023-11-07] MEDS: RIVAROXABAN 10 MG TABLET PO SCH (17:20)
[2023-11-07] MEDS: ENSURE ENLIVE (VAN) 240 ML LIQUID PO SCH (17:21)
[2023-11-07 20:00] VITALS: BP_SYST 107; BP_SYST 127; BP_DIAS 45; BP_DIAS 65; TEMP 98.2; TEMP 98.3; O2SAT 95; O2SAT 97
[2023-11-07] MEDS: POTASSIUM CHLORIDE 50 ML IV SCH ×2 (20:57→21:00)
[2023-11-07] MEDS: TERAZOSIN 5 MG CAPSULE PO SCH (21:00)
[2023-11-07] MEDS: TRAZODONE 50 MG TABLET PO SCH (22:31)
[2023-11-08] MEDS: PIPERACILLIN SODIUM/TAZOBACTAM 3.375 G in IV DEXTROSE 5% 100 ML IV SCH ×3 (05:46→22:52)
[2023-11-08] MEDS ORDERED: LORAZEPAM 2 MG/1 ML VIAL IV PRN (06:30)
[2023-11-08 07:00] VITALS: BP 128/74; TEMP 98.4; O2SAT 96
[2023-11-08] MEDS ORDERED: LORAZEPAM 2 MG/1 ML VIAL IV ONE (07:00)
[2023-11-08 07:07] LABS: BASOPHILS # (AUTO) 0.1 K/UL (0.0-0.2); BASOPHILS % (AUTO) 0.8 % (0.0-2.0); EOSINOPHILS # (AUTO) 0.6 K/uL (0.0-0.7); EOSINOPHILS % (AUTO) 8.9 % (0.0-7.0); HEMATOCRIT 36.6 % (36.7-47.1); HEMOGLOBIN 12.1 g/dL (12.5-16.3); LYMPHOCYTES # (AUTO) 2.1 K/uL (0.8-4.8); LYMPHOCYTES % (AUTO) 30.5 % (20.5-51.5); MEAN CORPUSCULAR HEMOGLOBIN 28.6 uug (23.8-33.4); MEAN CORPUSCULAR HGB CONC 33 g/dL (32.5-36.3); MEAN CORPUSCULAR VOLUME 86.5 fL (73.0-96.2); MONOCYTES # (AUTO) 0.6 K/uL (0.1-1.30); MONOCYTES % (AUTO) 8.1 % (0.0-11.0); NEUTROPHILS # (AUTO) 3.5 K/uL (1.8-8.9); NEUTROPHILS % (AUTO) 51.7 % (38.5-71.5); PLATELET COUNT (AUTO) 409 K/uL (152-348); RED BLOOD CELL COUNT(AUTO) 4.23 MIL/uL (4.06-5.63); RED CELL DISTRIBUTION WIDTH 16.4 % (12.1-16.2); WHITE BLOOD COUNT (AUTO) 6.8 K/uL (3.6-10.2)
[2023-11-08 07:20] LABS: DIFFERENTIAL COMMENT 1
[2023-11-08 07:31] LABS: CALCIUM 8.7 mg/dL (8.5-10.1); CARBON DIOXIDE 27 mmol/L (21-32); CHLORIDE 108 mmol/L (98-107); CREATININE 0.6 mg/dL (0.6-1.3); GLUCOSE 98 mg/dL (74-106); MAGNESIUM 1.9 mg/dL (1.8-2.4); PHOSPHOROUS 3.3 mg/dL (2.5-4.9); POTASSIUM 3.7 mmol/L (3.5-5.1); SODIUM SERUM 142 mmol/L (136-145); UREA NITROGEN, BLOOD 8 mg/dL (7-18)
[2023-11-08] MEDS ORDERED: FENTANYL CITRATE 100 MCG/2 ML AMPUL ONE (07:36)
[2023-11-08] MEDS ORDERED: MIDAZOLAM HCL 2 MG/2 ML VIAL ONE (07:37)
[2023-11-08] MEDS ORDERED: ROCURONIUM BROMIDE 50 MG/5 ML VIAL ONE (07:37)
[2023-11-08] MEDS ORDERED: PROPOFOL 200 MG/20 ML BOTTLE ONE (08:08)
[2023-11-08] MEDS ORDERED: CEFAZOLIN 1 G VIAL ONE (08:08)
[2023-11-08] MEDS ORDERED: LIDOCAINE-MPF 2% 5 ML VIAL ONE (08:08)
[2023-11-08] MEDS ORDERED: DEXAMETHASONE SOD PHOSPHATE 4 MG INJ ONE (08:08)
[2023-11-08] MEDS ORDERED: ONDANSETRON 4 MG/2 ML VIAL ONE (08:08)
[2023-11-08] MEDS ORDERED: BUPIVACAINE 0.25% 30 ML VIAL ONE (08:39)
[2023-11-08] MEDS ORDERED: LIDOCAINE 1%-EPI 1:100,000 20 ML VIAL ONE (08:39)
[2023-11-08] MEDS: ASCORBIC ACID 500 MG TABLET PO SCH (09:00)
[2023-11-08] MEDS: MULTIVIT, IRON, MIN NO. 8, FA TABLET PO SCH (09:00)
[2023-11-08] MEDS: risperiDONE-M 0.5 MG TAB.RAPDIS PO SCH ×4 (09:00→20:08)
[2023-11-08] MEDS: CARBAMAZEPINE 200 MG TABLET PO SCH ×3 (09:00→17:07)
[2023-11-08] MEDS: DOCUSATE SODIUM 100 MG CAPSULE PO SCH ×2 (09:00→20:09)
[2023-11-08] MEDS: ENSURE ENLIVE (VAN) 240 ML LIQUID PO SCH ×3 (09:00→17:07)
[2023-11-08] MEDS: ACIDOPHILUS/BULGARICUS CHEW TAB PO SCH ×2 (09:00→20:09)
[2023-11-08] MEDS: FINASTERIDE 5 MG TABLET PO SCH (09:00)
[2023-11-08] MEDS ORDERED: BACITRACIN/POLYMYXIN B OINT 15 GM TUBE ONE (09:21)
[2023-11-08] MEDS: IV LACTATED RINGERS SOLUTION 1,000 ML IV PRN (11:45)
[2023-11-08 11:49] VITALS: BP 122/79; TEMP 97.2; O2SAT 95
[2023-11-08] MEDS: LORAZEPAM 0.5 MG TABLET PO SCH ×3 (12:45→20:08)
[2023-11-08 16:00] VITALS: BP 109/69; TEMP 97.9; O2SAT 98
[2023-11-08] MEDS: RIVAROXABAN 10 MG TABLET PO SCH (17:08)
[2023-11-08] MEDS: TERAZOSIN 5 MG CAPSULE PO SCH (20:08)
[2023-11-08] MEDS: TRAZODONE 50 MG TABLET PO SCH (20:09)
[2023-11-08 20:29] VITALS: BP 103/62; TEMP 97.8; O2SAT 98
[2023-11-09] MEDS: MORPHINE SULFATE 2 MG/1 ML DISP.SYRIN IV PRN (02:36)
[2023-11-09] MEDS: LORAZEPAM 0.5 MG TABLET PO PRN (04:08)
[2023-11-09 05:00] VITALS: BP 121/71; TEMP 98.3; O2SAT 97
[2023-11-09] MEDS: PIPERACILLIN SODIUM/TAZOBACTAM 3.375 G in IV DEXTROSE 5% 100 ML IV SCH ×3 (05:13→21:07)
[2023-11-09] MEDS: IV LACTATED RINGERS SOLUTION 1,000 ML IV PRN (05:37)
[2023-11-09] MEDS ORDERED: LORAZEPAM 2 MG/1 ML VIAL IV PRN ×2 (07:15→11:30)
[2023-11-09 07:52] LABS: ALANINE AMINOTRANSFERASE 13 U/L (16-63); ALBUMIN 2.3 g/dL (3.4-5.0); ALKALINE PHOSPHATASE 99 U/L (50-136); ASPARTATE AMINOTRANSFERASE 9 U/L (15-37); BILIRUBIN,TOTAL 0.4 mg/dL (0.2-1.0); CALCIUM 7.8 mg/dL (8.5-10.1); CARBON DIOXIDE 26 mmol/L (21-32); CHLORIDE 105 mmol/L (98-107); CREATININE 0.6 mg/dL (0.6-1.3); GLUCOSE 110 mg/dL (74-106); MAGNESIUM 1.7 mg/dL (1.8-2.4); PHOSPHOROUS 2.9 mg/dL (2.5-4.9); POTASSIUM 3.3 mmol/L (3.5-5.1); SODIUM SERUM 138 mmol/L (136-145); TOTAL PROTEIN, SERUM 6.7 g/dL (6.4-8.2); UREA NITROGEN, BLOOD 10 mg/dL (7-18)
[2023-11-09 07:59] LABS: BASOPHILS # (AUTO) 0.1 K/UL (0.0-0.2); BASOPHILS % (AUTO) 0.7 % (0.0-2.0); EOSINOPHILS # (AUTO) 0.4 K/uL (0.0-0.7); HEMATOCRIT 32.6 % (36.7-47.1); LYMPHOCYTES # (AUTO) 1.6 K/uL (0.8-4.8); LYMPHOCYTES % (AUTO) 21.5 % (20.5-51.5); MEAN CORPUSCULAR HGB CONC 34 g/dL (32.5-36.3); MEAN CORPUSCULAR VOLUME 86.1 fL (73.0-96.2); MONOCYTES # (AUTO) 0.8 K/uL (0.1-1.30); MONOCYTES % (AUTO) 10.9 % (0.0-11.0); NEUTROPHILS # (AUTO) 4.7 K/uL (1.8-8.9); NEUTROPHILS % (AUTO) 61.9 % (38.5-71.5); PLATELET COUNT (AUTO) 330 K/uL (152-348); RED BLOOD CELL COUNT(AUTO) 3.78 MIL/uL (4.06-5.63); WHITE BLOOD COUNT (AUTO) 7.6 K/uL (3.6-10.2)
[2023-11-09 08:03] LABS: DIFFERENTIAL COMMENT 1
[2023-11-09] MEDS: MULTIVIT, IRON, MIN NO. 8, FA TABLET PO SCH (09:21)
[2023-11-09] MEDS: ASCORBIC ACID 500 MG TABLET PO SCH (09:21)
[2023-11-09] MEDS: CARBAMAZEPINE 200 MG TABLET PO SCH ×3 (09:22→17:00)
[2023-11-09] MEDS: DOCUSATE SODIUM 100 MG CAPSULE PO SCH ×2 (09:22→21:06)
[2023-11-09] MEDS: risperiDONE-M 0.5 MG TAB.RAPDIS PO SCH ×4 (09:22→21:07)
[2023-11-09] MEDS: FINASTERIDE 5 MG TABLET PO SCH (09:22)
[2023-11-09] MEDS: LORAZEPAM 0.5 MG TABLET PO SCH ×4 (09:23→21:07)
[2023-11-09] MEDS: ENSURE ENLIVE (VAN) 240 ML LIQUID PO SCH ×3 (09:26→17:00)
[2023-11-09] MEDS: ACIDOPHILUS/BULGARICUS CHEW TAB PO SCH ×2 (09:32→21:07)
[2023-11-09 11:18] VITALS: BP 93/63; TEMP 97.6; O2SAT 96
[2023-11-09] MEDS ORDERED: POTASSIUM CHLORIDE 20 MEQ TAB.PRT.SR PO ONE (11:30)
[2023-11-09] MEDS ORDERED: POTASSIUM CHLORIDE 20 MEQ POWDER PACKET PO ONE (11:30)
[2023-11-09] MEDS ORDERED: MAGNESIUM OXIDE 400 MG TABLET PO ONE (11:30)
[2023-11-09] MEDS ORDERED: LORAZEPAM 2 MG/1 ML VIAL IV ONE (13:00)
[2023-11-09 16:00] VITALS: BP 115/71; TEMP 98.5; O2SAT 98
[2023-11-09] MEDS: POTASSIUM CHLORIDE 50 ML IV SCH ×2 (17:13→17:34)
[2023-11-09] MEDS: MAGNESIUM SULFATE/D5W 100 ML IV SCH ×2 (17:13→17:34)
[2023-11-09] MEDS: RIVAROXABAN 10 MG TABLET PO SCH (17:35)
[2023-11-09 20:00] VITALS: BP 111/67; TEMP 98.2; O2SAT 95
[2023-11-09] MEDS: TRAZODONE 50 MG TABLET PO SCH (21:06)
[2023-11-09] MEDS: TERAZOSIN 5 MG CAPSULE PO SCH (21:07)
[2023-11-10 00:09] VITALS: O2SAT 95
[2023-11-10 04:00] VITALS: BP 114/72; TEMP 97.4; O2SAT 98
[2023-11-10] MEDS: PIPERACILLIN SODIUM/TAZOBACTAM 3.375 G in IV DEXTROSE 5% 100 ML IV SCH ×3 (05:41→21:57)
[2023-11-10 08:08] LABS: CARBON DIOXIDE 26 mmol/L (21-32); CHLORIDE 105 mmol/L (98-107); CREATININE 0.6 mg/dL (0.6-1.3); GLUCOSE 102 mg/dL (74-106); MAGNESIUM 2.3 mg/dL (1.8-2.4); POTASSIUM 3.7 mmol/L (3.5-5.1); SODIUM SERUM 141 mmol/L (136-145); UREA NITROGEN, BLOOD 6 mg/dL (7-18)
[2023-11-10] MEDS: DOCUSATE SODIUM 100 MG CAPSULE PO SCH ×2 (09:24→20:51)
[2023-11-10] MEDS: ACIDOPHILUS/BULGARICUS CHEW TAB PO SCH ×2 (09:24→20:52)
[2023-11-10] MEDS: ASCORBIC ACID 500 MG TABLET PO SCH (09:25)
[2023-11-10] MEDS: risperiDONE-M 0.5 MG TAB.RAPDIS PO SCH ×4 (09:25→20:51)
[2023-11-10] MEDS: LORAZEPAM 0.5 MG TABLET PO SCH ×5 (09:25→20:52)
[2023-11-10] MEDS: CARBAMAZEPINE 200 MG TABLET PO SCH ×4 (09:25→18:51)
[2023-11-10] MEDS: MULTIVIT, IRON, MIN NO. 8, FA TABLET PO SCH (09:25)
[2023-11-10] MEDS: FINASTERIDE 5 MG TABLET PO SCH (09:25)
[2023-11-10] MEDS: ENSURE ENLIVE (VAN) 240 ML LIQUID PO SCH ×3 (09:27→17:00)
[2023-11-10] MEDS ORDERED: OLANZAPINE 10 MG VIAL IM PRN (11:45)
[2023-11-10 11:59] VITALS: BP 101/65; TEMP 97.6; O2SAT 96
[2023-11-10 15:45] VITALS: O2SAT 96
[2023-11-10 16:00] VITALS: BP 102/58; TEMP 97.9; O2SAT 96
[2023-11-10] MEDS: RIVAROXABAN 10 MG TABLET PO SCH ×2 (18:00→18:53)
[2023-11-10 20:42] VITALS: BP 105/69; TEMP 98.4; O2SAT 96
[2023-11-10] MEDS: TRAZODONE 50 MG TABLET PO SCH (20:51)
[2023-11-10] MEDS: TERAZOSIN 5 MG CAPSULE PO SCH (20:52)
[2023-11-10] MEDS: IV LACTATED RINGERS SOLUTION 1,000 ML IV PRN (23:57)
[2023-11-11] MEDS: PIPERACILLIN SODIUM/TAZOBACTAM 3.375 G in IV DEXTROSE 5% 100 ML IV SCH (05:26)
[2023-11-11 05:30] VITALS: O2SAT 96
[2023-11-11 05:55] VITALS: BP 115/77; TEMP 97.6; O2SAT 96
[2023-11-11 06:08] LABS: ALDOSTERONE <1.0 ng/dL (.)
[2023-11-11] MEDS: DOCUSATE SODIUM 100 MG CAPSULE PO SCH (09:46)
[2023-11-11] MEDS: FINASTERIDE 5 MG TABLET PO SCH (09:46)
[2023-11-11] MEDS: CARBAMAZEPINE 200 MG TABLET PO SCH ×2 (09:46→12:51)
[2023-11-11] MEDS: ASCORBIC ACID 500 MG TABLET PO SCH (09:46)
[2023-11-11] MEDS: LORAZEPAM 0.5 MG TABLET PO SCH ×2 (09:46→12:51)
[2023-11-11] MEDS: risperiDONE-M 0.5 MG TAB.RAPDIS PO SCH ×2 (09:46→12:50)
[2023-11-11] MEDS: MULTIVIT, IRON, MIN NO. 8, FA TABLET PO SCH (09:46)
[2023-11-11] MEDS: ACIDOPHILUS/BULGARICUS CHEW TAB PO SCH (09:46)
[2023-11-11] MEDS: ENSURE ENLIVE (VAN) 240 ML LIQUID PO SCH ×2 (09:48→12:52)
[2023-11-11 11:33] VITALS: BP 105/72; TEMP 97.4; O2SAT 95
[2023-11-11] MEDS ORDERED: OLAN10VI IM (15:26)
[2023-11-11] MEDS ORDERED: TERA5CAP4 PO (15:26)
[2023-11-11] MEDS ORDERED: ACID1TAB4 PO (15:26)
[2023-11-11] MEDS ORDERED: Lactose-Free Food PO (15:26)
[2023-11-11] MEDS ORDERED: CARB200T8 PO (15:26)
[2023-11-11] MEDS ORDERED: BISA10SU12 RC (15:26)
[2023-11-11] MEDS ORDERED: ACET325T53 PO (15:26)
[2023-11-11] MEDS ORDERED: RISP0.5T74 PO (15:26)
[2023-11-11 15:46] VITALS: BP 107/64; TEMP 97.8; O2SAT 95
== END 2023-11-11 16:10 | DRG 227 ==
LOC: ER 13:44 → MEDSURG3 22:03
PROVIDERS: ADMIT Internal Medicine; ATTEND Nurse Practitioner Acute Care
PROC: 0D9670Z Drainage of Stomach with Drainage Device, Via Natural or Artificial Opening (ICD-10-PCS; 2023-10-29)
PROC: 0WQF0ZZ Repair Abdominal Wall, Open Approach (ICD-10-PCS; principal; 2023-11-08)
PROC: 0YU50JZ Supplement Right Inguinal Region with Synthetic Substitute, Open Approach (ICD-10-PCS; principal; 2023-11-08)
DX: K40.30 Unilateral inguinal hernia, with obstruction, without gangrene, not specified as recurrent (principal); E43 Unspecified severe protein-calorie malnutrition; D68.59 Other primary thrombophilia; G93.41 Metabolic encephalopathy; K42.0 Umbilical hernia with obstruction, without gangrene; F03.92 Unspecified dementia, unspecified severity, with psychotic disturbance; L03.115 Cellulitis of right lower limb; G30.9 Alzheimer's disease, unspecified; R64 Cachexia; F02.84 Dementia in other diseases classified elsewhere, unspecified severity, with anxiety; K42.9 Umbilical hernia without obstruction or gangrene; G40.909 Epilepsy, unspecified, not intractable, without status epilepticus; Z22.322 Carrier or suspected carrier of Methicillin resistant Staphylococcus aureus; E87.6 Hypokalemia; R41.89 Other symptoms and signs involving cognitive functions and awareness; S06.30AS Unspecified focal traumatic brain injury with loss of consciousness status unknown, sequela; W19.XXXS Unspecified fall, sequela; A09 Infectious gastroenteritis and colitis, unspecified; F03.94 Unspecified dementia, unspecified severity, with anxiety; Z86.718 Personal history of other venous thrombosis and embolism; Z79.01 Long term (current) use of anticoagulants; F31.9 Bipolar disorder, unspecified; D64.9 Anemia, unspecified; I10 Essential (primary) hypertension; Z87.19 Personal history of other diseases of the digestive system; K52.89 Other specified noninfective gastroenteritis and colitis; R94.31 Abnormal electrocardiogram [ECG] [EKG]; D72.829 Elevated white blood cell count, unspecified; Z78.1 Physical restraint status; Z91.199 Patient's noncompliance with other medical treatment and regimen due to unspecified reason; R26.81 Unsteadiness on feet
CPT/HCPCS: 36415; 70450; 71045; 80164; 82088; 82747; 83605; 83735; 83921; 84100; 84132; 84133; 84244; 84300; 84443; 85014; 85025; 87040; 93005; 93307; A4649; A4663; A6209; A6213; C1781; G0378; G0480; J0690; J1100; J2060; J2250; J2270; J2358; J2405; J2543; J3010; J3370; J3475; J3480; J3490; J7040; J7120

== ENCOUNTER 2024-02-28 08:59 | Inpatient (IN) | payer OTHER ==
[~2024-02-28] VITALS: Ht 177.8 cm; Wt 68.0 kg
[~2024-02-28 08:59] MED LIST: ACET325T53 PO; ACID1TAB4 PO; ASCO500C18 PO; BISA10SU12 RC; BISA10SU95 RC; CARB200T8 PO; CRAN450T9 PO; DOCU100T2 PO; FINA5TAB11 PO; HYDR-4209 PO; LORA0.5T48 PO; Lactose-Free Food PO; MULT-594 PO; OLAN10VI IM; POLY119P17 PO; RISP0.5T74 PO; RIVA20TA PO; TERA5CAP4 PO; TRAZ-182 PO
[2024-02-28] MEDS: VANCOMYCIN IV 1,000 MG in IV DEXTROSE 5% 250 ML IV ONE (09:15)
[2024-02-28] MEDS ORDERED: ONDA4TAB11 PO (09:26)
[2024-02-28] MEDS ORDERED: NA P133E RC (09:26)
[2024-02-28] MEDS ORDERED: DIVA500T2 PO (09:26)
[2024-02-28] MEDS ORDERED: ACET-2605 PO (09:26)
[2024-02-28] MEDS ORDERED: LIQUACEL PO (09:26)
[2024-02-28] MEDS ORDERED: MAGN400O6 PO (09:26)
[2024-02-28] MEDS ORDERED: FURO-151 PO (09:26)
[2024-02-28] MEDS ORDERED: SENN-261 PO (09:26)
[2024-02-28 09:32] LABS: BASOPHILS # (AUTO) 0.1 K/UL (0.0-0.2); BASOPHILS % (AUTO) 1.1 % (0.0-2.0); EOSINOPHILS # (AUTO) 0.5 K/uL (0.0-0.7); EOSINOPHILS % (AUTO) 5.1 % (0.0-7.0); HEMATOCRIT 36.5 % (36.7-47.1); HEMOGLOBIN 12.1 g/dL (12.5-16.3); LYMPHOCYTES # (AUTO) 1.6 K/uL (0.8-4.8); LYMPHOCYTES % (AUTO) 17.5 % (20.5-51.5); MEAN CORPUSCULAR HEMOGLOBIN 27.2 uug (23.8-33.4); MEAN CORPUSCULAR HGB CONC 33 g/dL (32.5-36.3); MEAN CORPUSCULAR VOLUME 82.2 fL (73.0-96.2); MONOCYTES # (AUTO) 0.8 K/uL (0.1-1.30); MONOCYTES % (AUTO) 8.6 % (0.0-11.0); NEUTROPHILS # (AUTO) 6.4 K/uL (1.8-8.9); NEUTROPHILS % (AUTO) 67.7 % (38.5-71.5); PLATELET COUNT (AUTO) 366 K/uL (152-348); RED BLOOD CELL COUNT(AUTO) 4.44 MIL/uL (4.06-5.63); RED CELL DISTRIBUTION WIDTH 15.1 % (12.1-16.2); WHITE BLOOD COUNT (AUTO) 9.4 K/uL (3.6-10.2)
[2024-02-28 09:34] LABS: DIFFERENTIAL COMMENT 1
[2024-02-28 09:42] LABS: CALCIUM 8.2 mg/dL (8.5-10.1); CARBON DIOXIDE 27 mmol/L (21-32); CHLORIDE 104 mmol/L (98-107); CREATININE 0.8 mg/dL (0.6-1.3); GLUCOSE 83 mg/dL (74-106); POTASSIUM 3.7 mmol/L (3.5-5.1); SODIUM SERUM 139 mmol/L (136-145); UREA NITROGEN, BLOOD 16 mg/dL (7-18)
[2024-02-28] MEDS ORDERED: PIPERACILLIN/TAZOBACTAM/D5W 50 ML IV ONE (09:48)
[2024-02-28] MEDS ORDERED: VANCOMYCIN IV 200 ML ONE (09:48)
[2024-02-28 09:55] LABS: ALANINE AMINOTRANSFERASE 13 U/L (16-63); ALBUMIN 2.7 g/dL (3.4-5.0); ALKALINE PHOSPHATASE 88 U/L (50-136); ASPARTATE AMINOTRANSFERASE 10 U/L (15-37); BILIRUBIN,DIRECT 0.1 mg/dL (0.0-0.2); BILIRUBIN,TOTAL 0.4 mg/dL (0.2-1.0); NT-PRO BNP 181 pg/mL (0-125); TOTAL PROTEIN, SERUM 7.6 g/dL (6.4-8.2)
[2024-02-28] MEDS: IV NORMAL SALINE 1000 ML BAG IV ONE (10:02)
[2024-02-28] MEDS: PIPERACILLIN SODIUM/TAZOBACTAM 3.375 G in IV DEXTROSE 5% 50 ML IV ONE (10:02)
[2024-02-28] MEDS ORDERED: REMEDY ESSENTIAL ZINC PASTE 113 GM TP PRN (11:00)
[2024-02-28] MEDS ORDERED: MAGNESIUM HYDROXIDE 30 ML LIQUID UDC PO PRN ×2 (11:00)
[2024-02-28] MEDS ORDERED: ENOXAPARIN SODIUM 30 MG/0.3 ML DISP.SYRIN SQ SCH (11:00)
[2024-02-28] MEDS ORDERED: ONDANSETRON 4 MG/2 ML VIAL IV PRN (11:00)
[2024-02-28 11:44] LABS: *BILIRUBIN,URIN NEGATIVE (NEGATIVE); *BLOOD, URINE 2+ (NEGATIVE); *CLARITY,URINE SLIGHTLY CLOUDY (CLEAR); *COLOR,URINE YELLOW (YELLOW); *KETONES,URINE NEGATIVE (NEGATIVE); *PROTEIN,URINE NEGATIVE (NEGATIVE); *UROBILINOGEN,URINE 0.2 E.U./dl (NORMAL); LEUKOCYTE ESTERASE ,URINE 3+ (NEGATIVE); NITRITE, URINE POSITIVE (NEGATIVE); PH,URINE 6.5 (5.0-8.0); UGLUCOSE NEGATIVE (NEGATIVE)
[2024-02-28 12:34] LABS: BACTERIA,URINE MANY /HPF (NONE SEEN); SQUAMOUS EPITHELIAL CELL,UR FEW /HPF (NONE SEEN); WBC,URINE 50-80 /HPF (0-3)
[2024-02-28] MEDS ORDERED: CARBAMAZEPINE 200 MG TABLET PO SCH ×2 (13:00→17:45)
[2024-02-28] MEDS ORDERED: risperiDONE-M 0.5 MG TAB.RAPDIS PO SCH (13:00)
[2024-02-28] MEDS: OLANZAPINE 10 MG VIAL IM ONE (14:12)
[2024-02-28 15:00] VITALS: BP 119/64; TEMP 98.1; O2SAT 95
[2024-02-28] MEDS: DIVALPROEX 500 MG TABLET.DR PO SCH (16:45)
[2024-02-28] MEDS: RIVAROXABAN 10 MG TABLET PO SCH (16:45)
[2024-02-28] MEDS: DOCUSATE SODIUM 100 MG CAPSULE PO SCH (16:46)
[2024-02-28] MEDS ORDERED: Medication Not On Formulary EA (Docusate Sodium 100 MG) PO SCH (17:00)
[2024-02-28] MEDS ORDERED: CARB100T5 PO (17:38)
[2024-02-28] MEDS ORDERED: RISP0.5T5 PO (17:41)
[2024-02-28] MEDS: risperiDONE 0.5 MG TABLET PO SCH (18:16)
[2024-02-28] MEDS: CARBAMAZEPINE 100 MG TAB.CHEW PO SCH (18:16)
[2024-02-28] MEDS: PIPERACILLIN SODIUM/TAZOBACTAM 3.375 G in IV DEXTROSE 5% 50 ML IV SCH (18:17)
[2024-02-28 20:00] VITALS: BP 117/65; TEMP 99.5; O2SAT 94
[2024-02-28] MEDS: ACIDOPHILUS/BULGARICUS CHEW TAB PO SCH (20:07)
[2024-02-28] MEDS: TRAZODONE 50 MG TABLET PO SCH (20:07)
[2024-02-28] MEDS: SENNOSIDES 1 TABLET PO SCH (20:08)
[2024-02-28] MEDS: TERAZOSIN 5 MG CAPSULE PO SCH (20:09)
[2024-02-28] MEDS: VANCOMYCIN IV 1,000 MG in IV DEXTROSE 5% 250 ML IV SCH (20:25)
[2024-02-28] MEDS: ACETAMINOPHEN 325 MG TABLET PO PRN (20:28)
[2024-02-28] MEDS ORDERED: TRAZODONE 50 MG TABLET PO SCH (21:00)
[2024-02-29] MEDS: diphenhydrAMINE 25 MG CAP PO ONE (04:33)
[2024-02-29 06:00] VITALS: BP_SYST 101; BP_SYST 89; BP_DIAS 63; BP_DIAS 66; TEMP 98.1; TEMP 99.9; O2SAT 92; O2SAT 96
[2024-02-29 08:13] LABS: BASOPHILS % (AUTO) 0.6 % (0.0-2.0); EOSINOPHILS # (AUTO) 0.5 K/uL (0.0-0.7); EOSINOPHILS % (AUTO) 6.2 % (0.0-7.0); HEMATOCRIT 35.3 % (36.7-47.1); HEMOGLOBIN 11.9 g/dL (12.5-16.3); LYMPHOCYTES # (AUTO) 1.8 K/uL (0.8-4.8); LYMPHOCYTES % (AUTO) 21.2 % (20.5-51.5); MEAN CORPUSCULAR HEMOGLOBIN 27.9 uug (23.8-33.4); MEAN CORPUSCULAR HGB CONC 34 g/dL (32.5-36.3); MEAN CORPUSCULAR VOLUME 82.9 fL (73.0-96.2); MONOCYTES # (AUTO) 0.8 K/uL (0.1-1.30); NEUTROPHILS # (AUTO) 5.3 K/uL (1.8-8.9); PLATELET COUNT (AUTO) 356 K/uL (152-348); RED BLOOD CELL COUNT(AUTO) 4.26 MIL/uL (4.06-5.63); RED CELL DISTRIBUTION WIDTH 14.8 % (12.1-16.2); WHITE BLOOD COUNT (AUTO) 8.5 K/uL (3.6-10.2)
[2024-02-29 08:27] LABS: DIFFERENTIAL COMMENT 1
[2024-02-29 08:35] LABS: ALBUMIN 2.5 g/dL (3.4-5.0); BILIRUBIN,TOTAL 0.3 mg/dL (0.2-1.0); CALCIUM 8.1 mg/dL (8.5-10.1); CREATININE 0.9 mg/dL (0.6-1.3); PHOSPHOROUS 3.9 mg/dL (2.5-4.9); POTASSIUM 3.6 mmol/L (3.5-5.1); TOTAL PROTEIN, SERUM 7.1 g/dL (6.4-8.2)
[2024-02-29] MEDS ORDERED: Medication Not On Formulary EA (Multivitamins (Multivitamin) 1 EACH) PO SCH (09:00)
[2024-02-29] MEDS ORDERED: Medication Not On Formulary EA (Ascorbic Acid (Vitamin C) 500 MG) PO SCH (09:00)
[2024-02-29] MEDS ORDERED: Medication Not On Formulary EA (Cranberry Fruit (Cranberry) 450 MG) PO SCH (09:00)
[2024-02-29] MEDS: FINASTERIDE 5 MG TABLET PO SCH (09:53)
[2024-02-29] MEDS: ASCORBIC ACID 500 MG TABLET PO SCH (09:53)
[2024-02-29] MEDS: MULTIVITAMINS,THERAPEUTIC TABLET PO SCH (09:53)
[2024-02-29] MEDS: diphenhydrAMINE 25 MG CAP PO PRN (09:53)
[2024-02-29] MEDS ORDERED: PERMETHRIN 5% CREAM 60 GM TUBE TP ONE ×4 (10:00)
[2024-02-29] MEDS: OLANZAPINE 10 MG VIAL IM ONE (10:02)
[2024-02-29] MEDS: PERMETHRIN 5% CREAM 60 GM TUBE TP ONE (10:03)
[2024-02-29 12:00] VITALS: BP 108/67; TEMP 97.5; O2SAT 97
[2024-02-29] MEDS: PIPERACILLIN SODIUM/TAZOBACTAM 3.375 G in IV DEXTROSE 5% 50 ML IV SCH (15:16)
[2024-02-29 16:25] VITALS: BP 107/61; TEMP 98.6; O2SAT 98
[2024-02-29] MEDS: OLANZAPINE 2.5 MG TABLET PO SCH (16:34)
[2024-02-29 21:13] VITALS: BP 132/75; TEMP 98.2; O2SAT 99
[2024-02-29] MEDS: OLANZAPINE 5 MG TABLET PO SCH (21:33)
[2024-03-01 08:00] VITALS: BP 115/66; TEMP 98.6; O2SAT 98
[2024-03-01 08:21] LABS: CARBAMAZEPINE (TEGRETOL) 2.8 ug/mL (4.0-12.0)
[2024-03-01 11:59] VITALS: BP 120/69; TEMP 97.3; O2SAT 93
[2024-03-01] MEDS: OLANZAPINE 10 MG VIAL IM ONE (12:57)
[2024-03-01] MEDS: PIPERACILLIN SODIUM/TAZOBACTAM 3.375 G in IV DEXTROSE 5% 100 ML IV SCH (16:22)
[2024-03-01] MEDS ORDERED: LORAZEPAM 2 MG/1 ML VIAL IV ONE (17:15)
[2024-03-01] MEDS ORDERED: OLANZAPINE 10 MG VIAL IM ONE (17:15)
[2024-03-01] MEDS: LORAZEPAM 2 MG/1 ML VIAL IM ONE (18:06)
[2024-03-01 20:00] VITALS: BP 116/64; TEMP 98.2; O2SAT 94
[2024-03-01] MEDS: OLANZAPINE 5 MG TABLET PO SCH (21:32)
[2024-03-02 05:10] VITALS: BP 102/68; TEMP 98.2; O2SAT 94
[2024-03-02 07:30] LABS: CALCIUM 8.2 mg/dL (8.5-10.1); CREATININE 0.8 mg/dL (0.6-1.3); POTASSIUM 3.9 mmol/L (3.5-5.1)
[2024-03-02 08:21] VITALS: BP 118/73; TEMP 97.6; O2SAT 94
[2024-03-02 11:45] VITALS: BP 115/73; TEMP 97.5; O2SAT 100
[2024-03-02 16:27] VITALS: BP 127/75; TEMP 97; O2SAT 99
[2024-03-02 17:58] VITALS: BP 104/62; TEMP 98.7; O2SAT 95
[2024-03-03 05:10] VITALS: BP 122/59; TEMP 98.4; O2SAT 98
[2024-03-03 11:30] VITALS: BP 127/70; TEMP 97.8; O2SAT 98
[2024-03-03 14:48] LABS: CALCIUM 7.8 mg/dL (8.5-10.1); CREATININE 0.8 mg/dL (0.6-1.3); POTASSIUM 3.8 mmol/L (3.5-5.1)
[2024-03-03 15:30] VITALS: BP 109/69; TEMP 97.9; O2SAT 98
[2024-03-03 20:35] VITALS: BP 107/41; TEMP 97.7; O2SAT 96
[2024-03-04 05:58] VITALS: BP 107/61; TEMP 97.8; O2SAT 92
[2024-03-04 08:00] VITALS: BP 111/65; TEMP 97.2; O2SAT 97
[2024-03-04 12:00] VITALS: BP 117/76; TEMP 97.6; O2SAT 97
[2024-03-04 16:00] VITALS: BP 127/58; TEMP 97.8; O2SAT 97
[2024-03-05 11:30] VITALS: BP 129/70; TEMP 98; O2SAT 98
== END 2024-03-05 14:30 | DRG 383 ==
LOC: ER 08:59 → MEDSURG3 11:34
PROVIDERS: ADMIT Nurse Practitioner Acute Care; ATTEND Nurse Practitioner Acute Care
PROC: 05HB33Z Insertion of Infusion Device into Right Basilic Vein, Percutaneous Approach (ICD-10-PCS; principal; 2024-03-01)
PROC: 05HC33Z Insertion of Infusion Device into Left Basilic Vein, Percutaneous Approach (ICD-10-PCS; 2024-03-02)
PROC: 05HB33Z Insertion of Infusion Device into Right Basilic Vein, Percutaneous Approach (ICD-10-PCS; 2024-03-02)
DX: L03.115 Cellulitis of right lower limb (principal); G93.41 Metabolic encephalopathy; E44.0 Moderate protein-calorie malnutrition; E88.09 Other disorders of plasma-protein metabolism, not elsewhere classified; F03.911 Unspecified dementia, unspecified severity, with agitation; G40.909 Epilepsy, unspecified, not intractable, without status epilepticus; B86 Scabies; F03.92 Unspecified dementia, unspecified severity, with psychotic disturbance; N39.0 Urinary tract infection, site not specified; L03.116 Cellulitis of left lower limb; R60.0 Localized edema; B96.20 Unspecified Escherichia coli [E. coli] as the cause of diseases classified elsewhere; F31.9 Bipolar disorder, unspecified; I25.10 Atherosclerotic heart disease of native coronary artery without angina pectoris; N40.0 Benign prostatic hyperplasia without lower urinary tract symptoms; Z78.1 Physical restraint status; Z87.820 Personal history of traumatic brain injury; Z86.718 Personal history of other venous thrombosis and embolism; Z79.01 Long term (current) use of anticoagulants; Z79.899 Other long term (current) drug therapy; I10 Essential (primary) hypertension; Z91.81 History of falling; Z87.01 Personal history of pneumonia (recurrent)
CPT/HCPCS: 36415; 71045; 80164; 83605; 83735; 84100; 84484; 85025; 85730; 87040; 93005; A4663; G0378; J2060; J2358; J2543; J3370; J3490; J7040; J7050; J8499; Q0163

== ENCOUNTER 2024-06-15 11:13 | Inpatient (IN) | payer MEDICAID, OTHER ==
[~2024-06-15] VITALS: Ht 177.8 cm; Wt 77.1 kg
[~2024-06-15 11:13] MED LIST changes: +ACET-2605 PO; -BISA10SU12 RC; -BISA10SU95 RC; +CARB100T5 PO; -CARB200T8 PO; +DIVA500T2 PO; +FURO-151 PO; +LIQUACEL PO; -LORA0.5T48 PO; -Lactose-Free Food PO; +MAGN400O6 PO; +NA P133E RC; -OLAN10VI IM; +ONDA4TAB11 PO; +RISP0.5T5 PO; -RISP0.5T74 PO; +SENN-261 PO
[2024-06-15] MEDS: CEFTRIAXONE 2 G in IV DEXTROSE 5% 100 ML IV ONE (13:15)
[2024-06-15 13:18] LABS: BASOPHILS % (AUTO) 0.7 % (0.0-2.0); EOSINOPHILS # (AUTO) 0.9 K/uL (0.0-0.7); EOSINOPHILS % (AUTO) 14.1 % (0.0-7.0); HEMATOCRIT 34.8 % (36.7-47.1); HEMOGLOBIN 11.1 g/dL (12.5-16.3); LYMPHOCYTES # (AUTO) 1.6 K/uL (0.8-4.8); LYMPHOCYTES % (AUTO) 26.2 % (20.5-51.5); MEAN CORPUSCULAR HEMOGLOBIN 25.7 uug (23.8-33.4); MEAN CORPUSCULAR HGB CONC 32 g/dL (32.5-36.3); MONOCYTES # (AUTO) 0.7 K/uL (0.1-1.30); MONOCYTES % (AUTO) 11.8 % (0.0-11.0); NEUTROPHILS # (AUTO) 2.9 K/uL (1.8-8.9); NEUTROPHILS % (AUTO) 47.2 % (38.5-71.5); PLATELET COUNT (AUTO) 289 K/uL (152-348); RED CELL DISTRIBUTION WIDTH 17.3 % (12.1-16.2)
[2024-06-15 13:19] LABS: DIFFERENTIAL COMMENT 1
[2024-06-15 13:26] LABS: CALCIUM 8.6 mg/dL (8.5-10.1); CARBON DIOXIDE 28 mmol/L (21-32); CHLORIDE 102 mmol/L (98-107); CREATININE 0.7 mg/dL (0.6-1.3); GLUCOSE 86 mg/dL (74-106); POTASSIUM 3.9 mmol/L (3.5-5.1); SODIUM SERUM 138 mmol/L (136-145); UREA NITROGEN, BLOOD 19 mg/dL (7-18)
[2024-06-15 13:37] LABS: ALANINE AMINOTRANSFERASE 13 U/L (16-63); ALBUMIN 2.6 g/dL (3.4-5.0); ALKALINE PHOSPHATASE 94 U/L (50-136); ASPARTATE AMINOTRANSFERASE 17 U/L (15-37); BILIRUBIN,DIRECT < 0.1 mg/dL (0.0-0.2); BILIRUBIN,TOTAL 0.2 mg/dL (0.2-1.0)
[2024-06-15] MEDS ORDERED: CEFTRIAXONE /D5W 50ML IVPB **ER PYXIS IV ONE (13:52)
[2024-06-15] MEDS ORDERED: LORAZEPAM 2 MG/1 ML VIAL ONE (14:56)
[2024-06-15] MEDS ORDERED: HALOPERIDOL LACTATE 5 MG/1 ML VIAL ONE (14:56)
[2024-06-15] MEDS: HALOPERIDOL LACTATE 5 MG/1 ML VIAL IV ONE (15:06)
[2024-06-15] MEDS: LORAZEPAM 2 MG/1 ML VIAL IV ONE (15:06)
[2024-06-15] MEDS ORDERED: diphenhydrAMINE 50 MG/1 ML VIAL ONE (15:42)
[2024-06-15] MEDS: diphenhydrAMINE 50 MG/1 ML VIAL IV ONE (15:58)
[2024-06-15] MEDS ORDERED: FUROSEMIDE 40 MG/4 ML VIAL IV SCH (18:45)
[2024-06-15] MEDS ORDERED: HYDROCODONE/APAP 5-325MG TABLET PO PRN ×2 (18:45)
[2024-06-15] MEDS ORDERED: REMEDY ESSENTIAL ZINC PASTE 113 GM TP PRN (18:45)
[2024-06-15] MEDS ORDERED: MAGNESIUM HYDROXIDE 30 ML LIQUID UDC PO PRN (18:45)
[2024-06-15] MEDS ORDERED: FLEET ENEMA 133 ML BOTTLE RC PRN (18:45)
[2024-06-15] MEDS ORDERED: ENOXAPARIN SODIUM 40 MG/0.4 ML DISP.SYRIN SQ SCH (18:45)
[2024-06-15] MEDS ORDERED: CARBAMAZEPINE 200 MG TABLET PO SCH (18:45)
[2024-06-15] MEDS ORDERED: ACETAMINOPHEN 325 MG TABLET PO PRN (18:45)
[2024-06-15] MEDS ORDERED: ONDANSETRON 4 MG/2 ML VIAL IV PRN (18:45)
[2024-06-15] MEDS: HALOPERIDOL LACTATE 5 MG/1 ML VIAL IM ONE (19:15)
[2024-06-15] MEDS ORDERED: OLANZAPINE 10 MG VIAL IM ONE (19:22)
[2024-06-15] MEDS: OLANZAPINE 10 MG VIAL IM ONE (19:25)
[2024-06-15] MEDS ORDERED: VANCOMYCIN IV 1,000 MG in IV NORMAL SALINE 250 ML IV ONE (20:00)
[2024-06-15] MEDS ORDERED: TRAZODONE 50 MG TABLET PO SCH (21:00)
[2024-06-15] MEDS ORDERED: SENNOSIDES 1 TABLET PO SCH (21:00)
[2024-06-15] MEDS ORDERED: ACIDOPHILUS/BULGARICUS CHEW TAB PO SCH (21:00)
[2024-06-15] MEDS ORDERED: TERAZOSIN 5 MG CAPSULE PO SCH (21:00)
[2024-06-15] MEDS ORDERED: VANCOMYCIN IV 200 ML ONE (21:23)
[2024-06-15] MEDS: ACIDOPHILUS/BULGARICUS CHEW TAB PO SCH (21:59)
[2024-06-15] MEDS: CARBAMAZEPINE 200 MG TABLET PO SCH (21:59)
[2024-06-15] MEDS: TERAZOSIN 5 MG CAPSULE PO SCH (22:01)
[2024-06-15] MEDS: SENNOSIDES 1 TABLET PO SCH (22:03)
[2024-06-15] MEDS: TRAZODONE 50 MG TABLET PO SCH (22:04)
[2024-06-15] MEDS: ENOXAPARIN SODIUM 40 MG/0.4 ML DISP.SYRIN SQ SCH (22:07)
[2024-06-15] MEDS: VANCOMYCIN IV 1,000 MG in IV NORMAL SALINE 250 ML IV ONE (22:09)
[2024-06-15] MEDS: FUROSEMIDE 40 MG/4 ML VIAL IV SCH (22:15)
[2024-06-16 07:14] LABS: BASOPHILS % (AUTO) 0.5 % (0.0-2.0); EOSINOPHILS # (AUTO) 0.7 K/uL (0.0-0.7); EOSINOPHILS % (AUTO) 8.8 % (0.0-7.0); HEMATOCRIT 33.9 % (36.7-47.1); HEMOGLOBIN 10.8 g/dL (12.5-16.3); LYMPHOCYTES # (AUTO) 1.2 K/uL (0.8-4.8); LYMPHOCYTES % (AUTO) 14.4 % (20.5-51.5); MEAN CORPUSCULAR HEMOGLOBIN 25.8 uug (23.8-33.4); MEAN CORPUSCULAR HGB CONC 32 g/dL (32.5-36.3); MEAN CORPUSCULAR VOLUME 80.6 fL (73.0-96.2); MONOCYTES # (AUTO) 0.8 K/uL (0.1-1.30); MONOCYTES % (AUTO) 9.3 % (0.0-11.0); NEUTROPHILS # (AUTO) 5.5 K/uL (1.8-8.9); PLATELET COUNT (AUTO) 278 K/uL (152-348); RED CELL DISTRIBUTION WIDTH 16.5 % (12.1-16.2); WHITE BLOOD COUNT (AUTO) 8.2 K/uL (3.6-10.2)
[2024-06-16 07:21] LABS: CALCIUM 8.2 mg/dL (8.5-10.1); CREATININE 0.9 mg/dL (0.6-1.3); POTASSIUM 3.6 mmol/L (3.5-5.1)
[2024-06-16 07:37] LABS: DIFFERENTIAL COMMENT 1
[2024-06-16 08:49] VITALS: BP 89/36; O2SAT 93
[2024-06-16] MEDS ORDERED: DIME118C3 TP (09:21)
[2024-06-16] MEDS ORDERED: TRIA15CR2 TP (09:21)
[2024-06-16] MEDS ORDERED: LORA-259 PO (09:21)
[2024-06-16] MEDS ORDERED: SULF1TAB48 PO (09:21)
[2024-06-16] MEDS ORDERED: OLAN5TAB3 PO ×2 (09:21)
[2024-06-16] MEDS ORDERED: DIPH25TA62 PO (09:21)
[2024-06-16] MEDS: VANCOMYCIN IV 1,000 MG in IV DEXTROSE 5% 250 ML IV SCH (09:25)
[2024-06-16] MEDS: FINASTERIDE 5 MG TABLET PO SCH (09:26)
[2024-06-16] MEDS: DIVALPROEX 500 MG TABLET.DR PO SCH (09:27)
[2024-06-16] MEDS: risperiDONE 0.5 MG TABLET PO SCH (09:27)
[2024-06-16 11:32] VITALS: BP 90/47; TEMP 98.3; O2SAT 93
[2024-06-16] MEDS: diphenhydrAMINE 50 MG/1 ML VIAL IV PRN (12:08)
[2024-06-16] MEDS: CEFTRIAXONE 1 G in IV DEXTROSE 5% 50 ML IV SCH (13:10)
[2024-06-16 15:32] VITALS: BP_SYST 116; BP_DIAS 65; BP_DIAS 66; TEMP 98.5; TEMP 98.9; O2SAT 93; O2SAT 96
[2024-06-16] MEDS: HALOPERIDOL LACTATE 5 MG/1 ML VIAL IM PRN (18:00)
[2024-06-16] MEDS: TRIAMCINOLONE ACET 0.1% OINT 60 GM TUBE TOP SCH (18:06)
[2024-06-16 20:00] VITALS: BP 111/43; TEMP 99.6; O2SAT 92
[2024-06-16] MEDS: PERMETHRIN 5% CREAM 60 GM TUBE TP ONE (20:15)
[2024-06-16] MEDS: OLANZAPINE 5 MG TABLET PO SCH (20:56)
[2024-06-16] MEDS: SULFAMETH/TRIMETH 800/160 MG TABLET PO SCH (20:57)
[2024-06-16] MEDS: LORAZEPAM 1 MG TABLET PO PRN (21:05)
[2024-06-17 06:00] VITALS: BP 111/62; TEMP 97.8; O2SAT 94
[2024-06-17 07:06] LABS: BASOPHILS # (AUTO) 0.1 K/UL (0.0-0.2); BASOPHILS % (AUTO) 0.4 % (0.0-2.0); EOSINOPHILS # (AUTO) 0.3 K/uL (0.0-0.7); HEMATOCRIT 34.8 % (36.7-47.1); HEMOGLOBIN 11.2 g/dL (12.5-16.3); LYMPHOCYTES % (AUTO) 12.9 % (20.5-51.5); MEAN CORPUSCULAR HEMOGLOBIN 26.1 uug (23.8-33.4); MEAN CORPUSCULAR HGB CONC 32 g/dL (32.5-36.3); MEAN CORPUSCULAR VOLUME 81.1 fL (73.0-96.2); MONOCYTES # (AUTO) 1.1 K/uL (0.1-1.30); NEUTROPHILS # (AUTO) 11.8 K/uL (1.8-8.9); NEUTROPHILS % (AUTO) 77.7 % (38.5-71.5); PLATELET COUNT (AUTO) 277 K/uL (152-348); RED BLOOD CELL COUNT(AUTO) 4.29 MIL/uL (4.06-5.63); RED CELL DISTRIBUTION WIDTH 17.1 % (12.1-16.2); WHITE BLOOD COUNT (AUTO) 15.2 K/uL (3.6-10.2)
[2024-06-17 07:28] LABS: DIFFERENTIAL COMMENT 1
[2024-06-17 08:05] LABS: THYROID STIMULATING HORMONE 2.08 mIU/mL (0.358-3.740)
[2024-06-17 08:29] LABS: ALBUMIN 2.6 g/dL (3.4-5.0); BILIRUBIN,TOTAL 0.4 mg/dL (0.2-1.0); CALCIUM 8.2 mg/dL (8.5-10.1); CREATININE 0.8 mg/dL (0.6-1.3); PHOSPHOROUS 3.4 mg/dL (2.5-4.9); POTASSIUM 3.8 mmol/L (3.5-5.1); TOTAL PROTEIN, SERUM 8.1 g/dL (6.4-8.2)
[2024-06-17] MEDS ORDERED: VANCOMYCIN IV 1,000 MG in IV DEXTROSE 5% 250 ML IV SCH ×2 (08:30→09:00)
[2024-06-17] MEDS: DIVALPROEX SPRINKLE 125 MG CAP.SPRINK PO SCH (08:37)
[2024-06-17] MEDS: VANCOMYCIN IV 1,250 MG in IV DEXTROSE 5% 250 ML IV SCH (10:38)
[2024-06-17 12:00] VITALS: BP 103/61; TEMP 97.6; O2SAT 96
[2024-06-17] MEDS: PERMETHRIN 5% CREAM 60 GM TUBE TP ONE (13:23)
[2024-06-17 16:00] VITALS: BP 103/76; TEMP 97.8; O2SAT 97
[2024-06-17 20:36] VITALS: BP 107/59; TEMP 98.4; O2SAT 90
[2024-06-17] MEDS: IVERMECTIN 3 MG TABLET PO ONE (21:30)
[2024-06-17] MEDS: LORATADINE 10 MG TABLET PO SCH (23:00)
[2024-06-18 07:13] LABS: BASOPHILS % (AUTO) 0.4 % (0.0-2.0); EOSINOPHILS # (AUTO) 0.9 K/uL (0.0-0.7); EOSINOPHILS % (AUTO) 13.1 % (0.0-7.0); HEMATOCRIT 33.1 % (36.7-47.1); HEMOGLOBIN 10.6 g/dL (12.5-16.3); LYMPHOCYTES # (AUTO) 2.1 K/uL (0.8-4.8); MEAN CORPUSCULAR HEMOGLOBIN 25.8 uug (23.8-33.4); MEAN CORPUSCULAR HGB CONC 32 g/dL (32.5-36.3); MEAN CORPUSCULAR VOLUME 80.6 fL (73.0-96.2); MONOCYTES # (AUTO) 0.7 K/uL (0.1-1.30); MONOCYTES % (AUTO) 9.8 % (0.0-11.0); NEUTROPHILS # (AUTO) 3.4 K/uL (1.8-8.9); NEUTROPHILS % (AUTO) 47.7 % (38.5-71.5); PLATELET COUNT (AUTO) 230 K/uL (152-348); RED BLOOD CELL COUNT(AUTO) 4.11 MIL/uL (4.06-5.63); RED CELL DISTRIBUTION WIDTH 16.9 % (12.1-16.2); WHITE BLOOD COUNT (AUTO) 7.1 K/uL (3.6-10.2)
[2024-06-18 07:17] LABS: CREATININE 0.8 mg/dL (0.6-1.3); DIFFERENTIAL COMMENT 1; MAGNESIUM 1.9 mg/dL (1.8-2.4); PHOSPHOROUS 3.8 mg/dL (2.5-4.9); POTASSIUM 4.2 mmol/L (3.5-5.1)
[2024-06-18 08:42] VITALS: BP 110/63; TEMP 97.6; O2SAT 97
[2024-06-18 08:44] LABS: *CLARITY,URINE CLOUDY (CLEAR); *COLOR,URINE YELLOW (YELLOW); *KETONES,URINE TRACE (NEGATIVE); *PROTEIN,URINE 1+ (NEGATIVE); *UROBILINOGEN,URINE 0.2 E.U./dl (NORMAL); LEUKOCYTE ESTERASE ,URINE 1+ (NEGATIVE); NITRITE, URINE POSITIVE (NEGATIVE); PH,URINE 8.5 (5.0-8.0); UGLUCOSE NEGATIVE (NEGATIVE)
[2024-06-18 08:50] LABS: *BILIRUBIN,URIN 1+ (NEGATIVE); *BLOOD, URINE TRACE (NEGATIVE)
[2024-06-18 09:03] LABS: BACTERIA,URINE MANY /HPF (NONE SEEN); TRIPLE PHOSPHATE CRYSTAL,UR MANY /HPF (NONE SEEN); WBC,URINE 20-50 /HPF (0-3)
[2024-06-18] MEDS: IVERMECTIN 3 MG TABLET PO ONE (10:15)
[2024-06-18 12:00] VITALS: BP 113/64; TEMP 98.8; O2SAT 97
[2024-06-18 16:00] VITALS: BP 107/66; TEMP 98.3; O2SAT 96
[2024-06-18] MEDS: OLANZAPINE 5 MG TABLET PO SCH (17:31)
[2024-06-18 20:00] VITALS: BP 102/55; TEMP 97.5; O2SAT 93
[2024-06-19] MEDS: LORAZEPAM 1 MG TABLET PO PRN (02:50)
[2024-06-19 06:00] VITALS: BP 124/77; TEMP 98.7; O2SAT 95
[2024-06-19 08:31] LABS: CALCIUM 8.5 mg/dL (8.5-10.1); CREATININE 0.8 mg/dL (0.6-1.3); PHOSPHOROUS 4.3 mg/dL (2.5-4.9); POTASSIUM 4.5 mmol/L (3.5-5.1); URIC ACID 4.2 mg/dL (3.5-7.2)
[2024-06-19 08:32] LABS: CARBAMAZEPINE (TEGRETOL) 5.8 ug/mL (4.0-12.0); VALPROIC ACID < 3 ug/mL (50-100)
[2024-06-19 08:44] LABS: THYROID STIMULATING HORMONE 2.47 mIU/mL (0.358-3.740)
[2024-06-19] MEDS ORDERED: IVERMECTIN 3 MG TABLET PO ONE (09:00)
[2024-06-19] MEDS ORDERED: DOXY100C5 PO (15:18)
[2024-06-19 16:00] VITALS: BP 100/58; TEMP 97.8; O2SAT 97
[2024-06-25] MEDS ORDERED: IVERMECTIN 3 MG TABLET PO SCH (11:00)
== END 2024-06-19 17:32 | DRG 602 ==
LOC: ER 11:14 → MEDSURG3 20:37
DX: L03.116 Cellulitis of left lower limb (principal); G93.41 Metabolic encephalopathy; S72.002K Fracture of unspecified part of neck of left femur, subsequent encounter for closed fracture with nonunion; N39.0 Urinary tract infection, site not specified; F03.92 Unspecified dementia, unspecified severity, with psychotic disturbance; F03.911 Unspecified dementia, unspecified severity, with agitation; E87.1 Hypo-osmolality and hyponatremia; D68.59 Other primary thrombophilia; I50.32 Chronic diastolic (congestive) heart failure; F03.94 Unspecified dementia, unspecified severity, with anxiety; E44.0 Moderate protein-calorie malnutrition; L03.115 Cellulitis of right lower limb; B86 Scabies; R91.8 Other nonspecific abnormal finding of lung field; K59.00 Constipation, unspecified; W19.XXXD Unspecified fall, subsequent encounter; Z91.81 History of falling; R79.82 Elevated C-reactive protein (CRP); N40.0 Benign prostatic hyperplasia without lower urinary tract symptoms; G40.909 Epilepsy, unspecified, not intractable, without status epilepticus; L29.9 Pruritus, unspecified; Z79.01 Long term (current) use of anticoagulants; Z74.09 Other reduced mobility; Z87.820 Personal history of traumatic brain injury; Z86.718 Personal history of other venous thrombosis and embolism; F31.9 Bipolar disorder, unspecified; I11.0 Hypertensive heart disease with heart failure; I25.10 Atherosclerotic heart disease of native coronary artery without angina pectoris; E88.09 Other disorders of plasma-protein metabolism, not elsewhere classified
CPT/HCPCS: 36415; 71045; 80164; 83550; 83605; 83735; 84100; 84443; 84484; 84550; 85025; 85730; 86140; 87040; 93005; 93307; A4663; G0378; J0696; J1200; J1630; J1650; J1940; J2060; J2358; J3370; J3590; J7050

== ENCOUNTER 2025-03-11 18:00 | Inpatient (IN) | payer OTHER ==
[~2025-03-11] VITALS: Ht 182.9 cm; Wt 90.0 kg
[~2025-03-11 18:00] MED LIST changes: -ACET-2605 PO; +DIME118C3 TP; +DIPH25TA62 PO; +DOXY100C5 PO; +LORA-259 PO; +OLAN5TAB3 PO; -ONDA4TAB11 PO; -RISP0.5T5 PO; +TRIA15CR2 TP
[2025-03-11] MEDS: LORAZEPAM 2 MG/1 ML VIAL IV ONE (18:30)
[2025-03-11 18:31] LABS: BASOPHILS % (AUTO) 0.2 % (0.0-2.0); HEMATOCRIT 40.4 % (36.7-47.1); HEMOGLOBIN 13.3 g/dL (12.5-16.3); LYMPHOCYTES # (AUTO) 0.4 K/uL (0.8-4.8); LYMPHOCYTES % (AUTO) 2.3 % (20.5-51.5); MEAN CORPUSCULAR HEMOGLOBIN 28.9 uug (23.8-33.4); MEAN CORPUSCULAR HGB CONC 33 g/dL (32.5-36.3); MEAN CORPUSCULAR VOLUME 88.1 fL (73.0-96.2); MONOCYTES # (AUTO) 0.8 K/uL (0.1-1.30); MONOCYTES % (AUTO) 4.8 % (0.0-11.0); NEUTROPHILS # (AUTO) 14.8 K/uL (1.8-8.9); NEUTROPHILS % (AUTO) 92.7 % (38.5-71.5); PLATELET COUNT (AUTO) 165 K/uL (152-348); RED BLOOD CELL COUNT(AUTO) 4.58 MIL/uL (4.06-5.63); RED CELL DISTRIBUTION WIDTH 15.9 % (12.1-16.2); WHITE BLOOD COUNT (AUTO) 15.9 K/uL (3.6-10.2)
[2025-03-11 18:32] LABS: DIFFERENTIAL COMMENT 1
[2025-03-11] MEDS ORDERED: CLOT15CR5 TP (18:33)
[2025-03-11] MEDS ORDERED: BACL5TAB PO (18:33)
[2025-03-11] MEDS ORDERED: ONDA4TAB5 PO (18:33)
[2025-03-11] MEDS: IV NORMAL SALINE 1000 ML BAG IV ONE (18:43)
[2025-03-11 18:44] LABS: CALCIUM 8.2 mg/dL (8.5-10.1); CARBON DIOXIDE 25 mmol/L (21-32); CHLORIDE 101 mmol/L (98-107); CREATININE 0.8 mg/dL (0.6-1.3); GLUCOSE 100 mg/dL (74-106); POTASSIUM 3.4 mmol/L (3.5-5.1); SODIUM SERUM 140 mmol/L (136-145); UREA NITROGEN, BLOOD 21 mg/dL (7-18)
[2025-03-11 18:56] LABS: ALANINE AMINOTRANSFERASE 27 U/L (16-63); ALBUMIN 3.1 g/dL (3.4-5.0); ALKALINE PHOSPHATASE 62 U/L (50-136); ASPARTATE AMINOTRANSFERASE 22 U/L (15-37); BILIRUBIN,DIRECT 0.2 mg/dL (0.0-0.2); BILIRUBIN,TOTAL 0.5 mg/dL (0.2-1.0); NT-PRO BNP 545 pg/mL (0-125); TOTAL PROTEIN, SERUM 7.6 g/dL (6.4-8.2)
[2025-03-11 19:21] LABS: *BILIRUBIN,URIN NEGATIVE (NEGATIVE); *BLOOD, URINE 1+ (NEGATIVE); *COLOR,URINE Other (YELLOW); *KETONES,URINE NEGATIVE (NEGATIVE); *PROTEIN,URINE 1+ (NEGATIVE); LEUKOCYTE ESTERASE ,URINE 2+ (NEGATIVE); NITRITE, URINE POSITIVE (NEGATIVE); PH,URINE 8.5 (5.0-8.0); UGLUCOSE NEGATIVE (NEGATIVE)
[2025-03-11 19:29] LABS: *CLARITY,URINE SLIGHTLY CLOUDY (CLEAR)
[2025-03-11] MEDS ORDERED: CEFEPIME HCL 1 G VIAL ONE ×2 (19:30→23:45)
[2025-03-11 19:37] LABS: BACTERIA,URINE MANY /HPF (NONE SEEN); SQUAMOUS EPITHELIAL CELL,UR FEW /HPF (NONE SEEN); WBC,URINE 50-80 /HPF (0-3)
[2025-03-11] MEDS: CEFEPIME HCL 2 G in IV DEXTROSE 5% 100 ML IV ONE (19:56)
[2025-03-11] MEDS ORDERED: MAGNESIUM HYDROXIDE 30 ML LIQUID UDC PO PRN (20:15)
[2025-03-11] MEDS ORDERED: ENOXAPARIN SODIUM 40 MG/0.4 ML DISP.SYRIN SQ SCH (20:15)
[2025-03-11] MEDS ORDERED: ONDANSETRON 4 MG/2 ML VIAL IV PRN (20:15)
[2025-03-11] MEDS: CLOTRIMAZOLE/BETAMET DIPROP CREAM 15 GM TUBE TP SCH (21:00)
[2025-03-11 21:50] VITALS: BP 124/76; TEMP 102.3
[2025-03-11] MEDS: TERAZOSIN 5 MG CAPSULE PO SCH (22:22)
[2025-03-11] MEDS: ACETAMINOPHEN 325 MG TABLET PO PRN (22:22)
[2025-03-11] MEDS: TRAZODONE 50 MG TABLET PO SCH (22:22)
[2025-03-11] MEDS: OLANZAPINE 5 MG TABLET PO SCH (22:22)
[2025-03-11] MEDS: SENNOSIDES 1 TABLET PO SCH (22:23)
[2025-03-11] MEDS ORDERED: VANCOMYCIN IV 200 ML ONE (23:45)
[2025-03-11] MEDS: VANCOMYCIN IV 1,000 MG in IV DEXTROSE 5% 250 ML IV SCH (23:54)
[2025-03-12] MEDS ORDERED: VANCOMYCIN IV 200 ML ONE (02:08)
[2025-03-12] MEDS: REMEDY ESSENTIAL ZINC PASTE 113 GM TP PRN (02:15)
[2025-03-12] MEDS: CEFEPIME HCL 2 GM in IV DEXTROSE 5% 100 ML IV SCH (04:03)
[2025-03-12 04:15] VITALS: BP 126/76; TEMP 99.6; O2SAT 96
[2025-03-12 06:55] LABS: BASOPHILS % (AUTO) 0.4 % (0.0-2.0); HEMOGLOBIN 12.1 g/dL (12.5-16.3); LYMPHOCYTES # (AUTO) 0.5 K/uL (0.8-4.8); MEAN CORPUSCULAR HGB CONC 34 g/dL (32.5-36.3); MEAN CORPUSCULAR VOLUME 86.6 fL (73.0-96.2); MONOCYTES # (AUTO) 0.5 K/uL (0.1-1.30); MONOCYTES % (AUTO) 4.3 % (0.0-11.0); NEUTROPHILS # (AUTO) 10.7 K/uL (1.8-8.9); NEUTROPHILS % (AUTO) 91.3 % (38.5-71.5); PLATELET COUNT (AUTO) 129 K/uL (152-348); RED BLOOD CELL COUNT(AUTO) 4.16 MIL/uL (4.06-5.63); RED CELL DISTRIBUTION WIDTH 15.8 % (12.1-16.2); WHITE BLOOD COUNT (AUTO) 11.7 K/uL (3.6-10.2)
[2025-03-12 07:04] LABS: CALCIUM 7.4 mg/dL (8.5-10.1); CREATININE 0.8 mg/dL (0.6-1.3); MAGNESIUM 1.6 mg/dL (1.8-2.4); PHOSPHOROUS 2.6 mg/dL (2.5-4.9)
[2025-03-12 07:08] LABS: DIFFERENTIAL COMMENT 1
[2025-03-12 07:12] LABS: POTASSIUM 2.8 mmol/L (3.5-5.1)
[2025-03-12] MEDS ORDERED: CARBAMAZEPINE 100 MG PO SCH (09:00)
[2025-03-12] MEDS: DOCUSATE SODIUM 100 MG CAPSULE PO SCH (10:51)
[2025-03-12] MEDS: FUROSEMIDE 40 MG/4 ML VIAL IV SCH (10:51)
[2025-03-12] MEDS: FINASTERIDE 5 MG TABLET PO SCH (10:52)
[2025-03-12] MEDS: RIVAROXABAN 10 MG TABLET PO SCH (10:52)
[2025-03-12] MEDS: DIVALPROEX 500 MG TABLET.DR PO SCH ×2 (10:56→21:25)
[2025-03-12] MEDS: MAGNESIUM OXIDE 400 MG TABLET PO ONE (10:56)
[2025-03-12] MEDS: OLANZAPINE 5 MG TABLET PO SCH (10:58)
[2025-03-12 11:37] VITALS: BP 96/45; TEMP 98.5; O2SAT 94
[2025-03-12] MEDS: VANCOMYCIN HCL 1,500 MG in IV DEXTROSE 5% 500 ML IV SCH (11:46)
[2025-03-12] MEDS: POTASSIUM CHLORIDE 20 MEQ TAB.PRT.SR PO ONE (11:59)
[2025-03-12] MEDS ORDERED: POTASSIUM CHLORIDE 50 ML IV SCH (12:30)
[2025-03-12] MEDS ORDERED: MAGNESIUM SULFATE/D5W 100 ML IV SCH (12:30)
[2025-03-12] MEDS ORDERED: POTASSIUM CHLORIDE 10 MEQ, LIDOCAINE-MPF 1% 1 ML in IV DEXTROSE 5% 100 ML IV SCH (12:30)
[2025-03-12] MEDS: POTASSIUM CHLORIDE 50 ML IV SCH (14:16)
[2025-03-12 14:22] LABS: THYROID STIMULATING HORMONE 0.533 mIU/mL (0.358-3.740)
[2025-03-12 14:27] LABS: AMMONIA < 10 umol/L (11-32)
[2025-03-12] MEDS: OLANZAPINE 10 MG VIAL IM ONE (15:41)
[2025-03-12] MEDS ORDERED: POTASSIUM CHLORIDE 20 MEQ TAB.PRT.SR PO ONE (16:00)
[2025-03-12 16:32] VITALS: BP 100/55; TEMP 98.3; O2SAT 93
[2025-03-12] MEDS ORDERED: CLOT15CR5 TP (17:32)
[2025-03-12] MEDS: CARBAMAZEPINE 200 MG TABLET PO SCH (18:40)
[2025-03-12 19:51] VITALS: BP 100/69; TEMP 97.4; O2SAT 96
[2025-03-12 20:00] VITALS: BP 100/69; TEMP 98; O2SAT 96
[2025-03-12 22:02] LABS: *AMPHETAMINE, URINE NEGATIVE (NEGATIVE); *BARBITURATE, URINE NEGATIVE (NEGATIVE); *BENZODIAZEPINE, URINE NEGATIVE (NEGATIVE); *CANNABINOID, URINE NEGATIVE (NEGATIVE); *COCCAINE, URINE NEGATIVE (NEGATIVE); *OPIATE, URINE NEGATIVE (NEGATIVE); *PHENCYCLIDINE SCREEN,URINE NEGATIVE (NEGATIVE); FENTANYL, URINE NEGATIVE (NEGATIVE)
[2025-03-13 05:38] VITALS: BP 115/70; TEMP 98.3; O2SAT 95
[2025-03-13 05:57] VITALS: O2SAT 95
[2025-03-13 07:46] VITALS: BP 105/64; TEMP 98.1; O2SAT 95
[2025-03-13] MEDS: CLOTRIMAZOLE/BETAMET DIPROP CREAM 15 GM TUBE TP SCH (09:13)
[2025-03-13 11:25] VITALS: BP 118/67; TEMP 98.6; O2SAT 94
[2025-03-13 14:40] LABS: CALCIUM 7.9 mg/dL (8.5-10.1); CREATININE 0.9 mg/dL (0.6-1.3); MAGNESIUM 1.9 mg/dL (1.8-2.4)
[2025-03-13 15:32] VITALS: BP 110/67; TEMP 98.3; O2SAT 95
[2025-03-13] MEDS: POTASSIUM CHLORIDE 20 MEQ TAB.PRT.SR PO ONE (17:17)
[2025-03-13 19:00] VITALS: BP 123/76; TEMP 98.1; O2SAT 96
[2025-03-13] MEDS: TEMAZEPAM 15 MG CAPSULE PO SCH (21:36)
[2025-03-14 05:33] VITALS: O2SAT 96
[2025-03-14 06:00] VITALS: BP 118/64; TEMP 97.6; O2SAT 95
[2025-03-14] MEDS: HYDROCODONE/APAP 5-325MG TABLET PO PRN (08:17)
[2025-03-14] MEDS: diphenhydrAMINE 25 MG CAP PO PRN (08:17)
[2025-03-14] MEDS: ENSURE ENLIVE (VAN) 240 ML LIQUID PO SCH (08:20)
[2025-03-14 09:51] LABS: BASOPHILS % (AUTO) 0.5 % (0.0-2.0); EOSINOPHILS # (AUTO) 0.4 K/uL (0.0-0.7); EOSINOPHILS % (AUTO) 6.2 % (0.0-7.0); HEMATOCRIT 37.1 % (36.7-47.1); HEMOGLOBIN 12.3 g/dL (12.5-16.3); LYMPHOCYTES % (AUTO) 31.3 % (20.5-51.5); MEAN CORPUSCULAR HGB CONC 33 g/dL (32.5-36.3); MEAN CORPUSCULAR VOLUME 87.4 fL (73.0-96.2); MONOCYTES # (AUTO) 0.7 K/uL (0.1-1.30); MONOCYTES % (AUTO) 11.1 % (0.0-11.0); NEUTROPHILS # (AUTO) 3.2 K/uL (1.8-8.9); NEUTROPHILS % (AUTO) 50.9 % (38.5-71.5); PLATELET COUNT (AUTO) 156 K/uL (152-348); RED BLOOD CELL COUNT(AUTO) 4.24 MIL/uL (4.06-5.63); RED CELL DISTRIBUTION WIDTH 15.9 % (12.1-16.2); WHITE BLOOD COUNT (AUTO) 6.3 K/uL (3.6-10.2)
[2025-03-14 09:53] LABS: DIFFERENTIAL COMMENT 1
[2025-03-14 09:57] LABS: CALCIUM 7.9 mg/dL (8.5-10.1); CREATININE 0.7 mg/dL (0.6-1.3); POTASSIUM 3.7 mmol/L (3.5-5.1)
[2025-03-14] MEDS: LORAZEPAM 1 MG TABLET PO PRN (11:38)
[2025-03-14 11:40] VITALS: BP 102/67; TEMP 98.1; O2SAT 94
[2025-03-14] MEDS: QUETIAPINE FUMARATE 25 MG TABLET PO PRN (14:12)
[2025-03-14 16:00] VITALS: BP 112/66; TEMP 98.1; O2SAT 93
[2025-03-14] MEDS: DIVALPROEX SPRINKLE 125 MG CAP.SPRINK PO SCH (17:27)
[2025-03-14 19:25] VITALS: BP 109/61; TEMP 99.1; O2SAT 90
[2025-03-14] MEDS: QUETIAPINE FUMARATE 25 MG TABLET PO SCH (20:11)
[2025-03-15 06:51] VITALS: BP 123/73; TEMP 97.5; O2SAT 93
[2025-03-15 07:25] LABS: CARBAMAZEPINE (TEGRETOL) 6.5 ug/mL (4.0-12.0)
[2025-03-15 08:00] VITALS: BP 120/68; TEMP 97.9; O2SAT 92
[2025-03-15 12:00] VITALS: BP 104/66; TEMP 98.2; O2SAT 94
[2025-03-15 19:20] VITALS: BP 117/69; TEMP 97.8; O2SAT 93
[2025-03-16 06:38] VITALS: BP 126/85; TEMP 98.3; O2SAT 94
[2025-03-16 11:29] LABS: CALCIUM 7.8 mg/dL (8.5-10.1); CREATININE 0.7 mg/dL (0.6-1.3); POTASSIUM 3.6 mmol/L (3.5-5.1)
[2025-03-16 11:47] VITALS: BP 105/67; TEMP 98.3; O2SAT 95
[2025-03-16] MEDS: AMPICILLIN 2 G in NS 100 ML IV SCH (12:59)
[2025-03-16 16:00] VITALS: BP 113/66; TEMP 97.7; O2SAT 95
[2025-03-16 20:00] VITALS: BP 117/74; TEMP 97.9; O2SAT 95
[2025-03-16 21:41] LABS: VANCOMYCIN,TROUGH 21.1 ug/mL (10.0-20.0)
[2025-03-16] MEDS: OLANZAPINE 10 MG VIAL IM PRN (23:40)
[2025-03-17 04:38] VITALS: BP 107/64; TEMP 97.9; O2SAT 95
[2025-03-17 07:36] LABS: BASOPHILS % (AUTO) 0.6 % (0.0-2.0); EOSINOPHILS # (AUTO) 0.4 K/uL (0.0-0.7); EOSINOPHILS % (AUTO) 5.4 % (0.0-7.0); HEMATOCRIT 35.2 % (36.7-47.1); HEMOGLOBIN 11.7 g/dL (12.5-16.3); LYMPHOCYTES # (AUTO) 1.8 K/uL (0.8-4.8); LYMPHOCYTES % (AUTO) 25.8 % (20.5-51.5); MEAN CORPUSCULAR HEMOGLOBIN 28.9 uug (23.8-33.4); MEAN CORPUSCULAR HGB CONC 33 g/dL (32.5-36.3); MEAN CORPUSCULAR VOLUME 86.9 fL (73.0-96.2); MONOCYTES # (AUTO) 0.8 K/uL (0.1-1.30); MONOCYTES % (AUTO) 11.1 % (0.0-11.0); NEUTROPHILS # (AUTO) 3.9 K/uL (1.8-8.9); NEUTROPHILS % (AUTO) 57.1 % (38.5-71.5); PLATELET COUNT (AUTO) 212 K/uL (152-348); RED BLOOD CELL COUNT(AUTO) 4.05 MIL/uL (4.06-5.63); RED CELL DISTRIBUTION WIDTH 15.7 % (12.1-16.2); WHITE BLOOD COUNT (AUTO) 6.8 K/uL (3.6-10.2)
[2025-03-17 07:42] LABS: DIFFERENTIAL COMMENT 1
[2025-03-17 07:47] LABS: ALBUMIN 2.3 g/dL (3.4-5.0); BILIRUBIN,TOTAL 0.2 mg/dL (0.2-1.0); CALCIUM 8.2 mg/dL (8.5-10.1); CREATININE 0.7 mg/dL (0.6-1.3); MAGNESIUM 2.2 mg/dL (1.8-2.4); PHOSPHOROUS 2.8 mg/dL (2.5-4.9); POTASSIUM 3.9 mmol/L (3.5-5.1); TOTAL PROTEIN, SERUM 6.5 g/dL (6.4-8.2)
[2025-03-17] MEDS: PERMETHRIN 5% CREAM 60 GM TUBE TP ONE (13:40)
[2025-03-17 15:31] VITALS: BP 103/69; TEMP 98.5; O2SAT 94
[2025-03-17] MEDS ORDERED: SULF1TAB47 PO (15:54)
[2025-03-17] MEDS ORDERED: HYDR-3972 PO (15:54)
[2025-03-17] MEDS ORDERED: MENT113O TP (15:54)
== END 2025-03-17 18:35 | DRG 720 ==
LOC: ER 18:58 → MEDSURG3 21:15
PROVIDERS: ADMIT Internal Medicine; ATTEND Internal Medicine
PROC: 05HB33Z Insertion of Infusion Device into Right Basilic Vein, Percutaneous Approach (ICD-10-PCS; principal; 2025-03-13)
DX: A41.51 Sepsis due to Escherichia coli [E. coli] (principal); A40.8 Other streptococcal sepsis; J96.21 Acute and chronic respiratory failure with hypoxia; G92.8 Other toxic encephalopathy; E44.0 Moderate protein-calorie malnutrition; D68.59 Other primary thrombophilia; F25.9 Schizoaffective disorder, unspecified; B86 Scabies; R65.20 Severe sepsis without septic shock; L03.115 Cellulitis of right lower limb; L03.116 Cellulitis of left lower limb; E86.0 Dehydration; I50.32 Chronic diastolic (congestive) heart failure; I11.0 Hypertensive heart disease with heart failure; N39.0 Urinary tract infection, site not specified; F31.9 Bipolar disorder, unspecified; E83.42 Hypomagnesemia; K42.9 Umbilical hernia without obstruction or gangrene; D64.9 Anemia, unspecified; E87.6 Hypokalemia; F02.A3 Dementia in other diseases classified elsewhere, mild, with mood disturbance; F02.A4 Dementia in other diseases classified elsewhere, mild, with anxiety; G30.9 Alzheimer's disease, unspecified; G40.909 Epilepsy, unspecified, not intractable, without status epilepticus; L30.9 Dermatitis, unspecified; N40.0 Benign prostatic hyperplasia without lower urinary tract symptoms; J98.11 Atelectasis; I25.10 Atherosclerotic heart disease of native coronary artery without angina pectoris; K38.1 Appendicular concretions; Z86.718 Personal history of other venous thrombosis and embolism; Z79.01 Long term (current) use of anticoagulants; Z74.09 Other reduced mobility; Z87.81 Personal history of (healed) traumatic fracture; Z87.820 Personal history of traumatic brain injury; Z79.899 Other long term (current) drug therapy; Z81.8 Family history of other mental and behavioral disorders; R60.0 Localized edema; Z68.28 Body mass index [BMI] 28.0-28.9, adult
CPT/HCPCS: 36415; 71045; 80164; 83605; 83735; 84100; 84443; 84484; 85025; 87040; 87077; 87086; A4606; A4663; A6209; A6213; C1758; G0378; J0290; J0692; J1938; J2358; J3370; J3371; J3480; J7040; J7050; J7060; Q0163

== ENCOUNTER 2025-07-09 20:08 | Inpatient (IN) | payer OTHER ==
[~2025-07-09] VITALS: Ht 177.8 cm; Wt 81.6 kg
[~2025-07-09 20:08] MED LIST changes: +BACL5TAB PO; +CLOT15CR5 TP; -DOXY100C5 PO; +HYDR-3972 PO; -HYDR-4209 PO; -LIQUACEL PO; -LORA-259 PO; -MAGN400O6 PO; +MENT113O TP; -OLAN5TAB3 PO; +SULF1TAB47 PO; -TRAZ-182 PO; -TRIA15CR2 TP
[2025-07-09] MEDS: LIDOCAINE 2% (GLYDO= UROJET) 10 ML JELLY MM ONE (20:30)
[2025-07-09] MEDS ORDERED: LIDOCAINE 2% (GLYDO= UROJET) 10 ML JELLY MM ONE (20:33)
[2025-07-09] MEDS: IV NORMAL SALINE 500 ML BAG IV ONE (20:42)
[2025-07-09 20:46] LABS: PLATELET COUNT (AUTO) 385 K/uL (152-348); RED BLOOD CELL COUNT(AUTO) 4.43 MIL/uL (4.06-5.63); RED CELL DISTRIBUTION WIDTH 14.7 % (12.1-16.2); WHITE BLOOD COUNT (AUTO) 10.8 K/uL (3.6-10.2)
[2025-07-09 20:53] LABS: CREATININE 0.7 mg/dL (0.6-1.3); SODIUM SERUM 139.0 mmol/L (136-145); UREA NITROGEN, BLOOD 20.0 mg/dL (7-18)
[2025-07-09] MEDS ORDERED: ZINC220T3 PO (21:05)
[2025-07-09] MEDS ORDERED: PANT40TA49 PO (21:05)
[2025-07-09] MEDS ORDERED: OLAN2.5T3 PO (21:05)
[2025-07-09] MEDS ORDERED: MULT-213 PO (21:05)
[2025-07-09] MEDS ORDERED: RISP1TAB7 PO (21:05)
[2025-07-09] MEDS ORDERED: DIVA125C2 PO (21:05)
[2025-07-09 21:07] LABS: ASPARTATE AMINOTRANSFERASE 19.0 U/L (15-37); TOTAL PROTEIN, SERUM 7.8 g/dL (6.4-8.2)
[2025-07-09] MEDS ORDERED: BENZ0.5T43 PO (21:14)
[2025-07-09] MEDS ORDERED: NYST15PO4 TP (21:14)
[2025-07-09 21:52] LABS: *BILIRUBIN,URIN 1+ (NEGATIVE); *BLOOD, URINE 2+ (NEGATIVE); *CLARITY,URINE SLIGHTLY CLOUDY (CLEAR); *COLOR,URINE YELLOW (YELLOW); *KETONES,URINE TRACE (NEGATIVE); *PROTEIN,URINE 1+ (NEGATIVE); *UROBILINOGEN,URINE 1.0 E.U./dl (NORMAL); LEUKOCYTE ESTERASE ,URINE 1+ (NEGATIVE); NITRITE, URINE POSITIVE (NEGATIVE); UGLUCOSE NEGATIVE (NEGATIVE)
[2025-07-09 21:59] LABS: SQUAMOUS EPITHELIAL CELL,UR FEW /HPF (NONE SEEN)
[2025-07-09] MEDS ORDERED: IOHEXOL 350 100 ML INFUS..BTL ONE (22:11)
[2025-07-09] MEDS ORDERED: VANCOMYCIN IV 200 ML ONE (22:33)
[2025-07-09] MEDS ORDERED: METRONIDAZOLE 500 MG/NS 100ML 100 ML IV ONE (22:34)
[2025-07-09] MEDS: VANCOMYCIN IV 1,000 MG in IV DEXTROSE 5% 250 ML IV ONE (22:36)
[2025-07-09] MEDS: METRONIDAZOLE 500 MG/NS 100 ML PIGGYBACK IV ONE (22:48)
[2025-07-09] MEDS ORDERED: IV D5W-0.45% NS +20 KCL 1,000 ML IV ONE (23:33)
[2025-07-09] MEDS: IV D5W-0.45% NS +20 KCL 1,000 ML IV ONE (23:34)
[2025-07-10] VITALS (10 sets, daily range): BP systolic 97–118; BP diastolic 58–67; TEMP 97.6–98.8; O2SAT 92–99
[2025-07-10] MEDS ORDERED: ACETAMINOPHEN 650 MG SUPP.RECT RC PRN (00:15)
[2025-07-10] MEDS ORDERED: ONDANSETRON 4 MG/2 ML VIAL IV PRN (00:15)
[2025-07-10] MEDS ORDERED: REMEDY ESSENTIAL ZINC PASTE 113 GM TP PRN (00:15)
[2025-07-10] MEDS ORDERED: METRONIDAZOLE 500 MG/NS 100ML 100 ML IV ONE (02:01)
[2025-07-10] MEDS ORDERED: CEFEPIME HCL 1 G VIAL ONE (02:02)
[2025-07-10] MEDS: CEFEPIME HCL 2 GM in IV DEXTROSE 5% 100 ML IV SCH (03:37)
[2025-07-10] MEDS: METRONIDAZOLE 500 MG/NS 100ML 500 MG in PREMIXED 1 EACH IV SCH (05:46)
[2025-07-10 06:45] LABS: PLATELET COUNT (AUTO) 333 K/uL (152-348); RED BLOOD CELL COUNT(AUTO) 4.14 MIL/uL (4.06-5.63); RED CELL DISTRIBUTION WIDTH 14.6 % (12.1-16.2); WHITE BLOOD COUNT (AUTO) 9.0 K/uL (3.6-10.2)
[2025-07-10 06:57] LABS: CREATININE 0.6 mg/dL (0.6-1.3); SODIUM SERUM 140 mmol/L (136-145); UREA NITROGEN, BLOOD 14 mg/dL (7-18)
[2025-07-10] MEDS: POTASSIUM CHLORIDE 40 MEQ in IV D5/ 0.9% NACL 1,000 ML IV PRN (08:35)
[2025-07-10] MEDS: VANCOMYCIN IV 1,000 MG in IV DEXTROSE 5% 250 ML IV SCH (08:35)
[2025-07-10] MEDS: PANTOPRAZOLE SODIUM 40 MG VIAL IV SCH (08:54)
[2025-07-10] MEDS ORDERED: MAG355OR18 PO (10:08)
[2025-07-10] MEDS ORDERED: MAGN400O6 PO (10:08)
[2025-07-10] MEDS ORDERED: DIME118C TP (10:12)
[2025-07-10] MEDS ORDERED: TRIA15OI11 TP (10:16)
[2025-07-10] MEDS ORDERED: ACET500C4 PO (10:17)
[2025-07-10] MEDS ORDERED: ACET325T53 PO (10:22)
[2025-07-10] MEDS: REMEDY ESSENTIAL ZINC PASTE 113 GM TP SCH (12:23)
[2025-07-11] VITALS (8 sets, daily range): BP systolic 101–113; BP diastolic 59–78; TEMP 98.1–99.1; O2SAT 93–97
[2025-07-11 05:40] LABS: PLATELET COUNT (AUTO) 339 K/uL (152-348); RED BLOOD CELL COUNT(AUTO) 4.07 MIL/uL (4.06-5.63); RED CELL DISTRIBUTION WIDTH 14.9 % (12.1-16.2); WHITE BLOOD COUNT (AUTO) 8.0 K/uL (3.6-10.2)
[2025-07-11 05:54] LABS: CREATININE 0.5 mg/dL (0.6-1.3); SODIUM SERUM 138 mmol/L (136-145); UREA NITROGEN, BLOOD 9 mg/dL (7-18)
[2025-07-11] MEDS ORDERED: VANCOMYCIN IV 200 ML ONE (06:32)
[2025-07-11] MEDS: POTASSIUM CHLORIDE 20 MEQ POWDER PACKET PO ONE (11:43)
[2025-07-11] MEDS ORDERED: SENNOSIDES 1 TABLET PO PRN (11:45)
[2025-07-11] MEDS ORDERED: POLYETHYLENE GLYCOL 3350 238 GM POWDER PO PRN (11:45)
[2025-07-11] MEDS ORDERED: NYSTATIN POWDER 15 GM BOTTLE TP SCH (12:01)
[2025-07-11] MEDS: BENZTROPINE MESYLATE 0.5 MG TABLET PO SCH (12:34)
[2025-07-11] MEDS: DIVALPROEX SPRINKLE 125 MG CAP.SPRINK PO SCH (13:38)
[2025-07-11] MEDS: OLANZAPINE 2.5 MG TABLET PO SCH (16:42)
[2025-07-11] MEDS: BACLOFEN 10 MG TABLET PO SCH (16:42)
[2025-07-11] MEDS: FINASTERIDE 5 MG TABLET PO SCH (17:05)
[2025-07-11] MEDS: RIVAROXABAN 10 MG TABLET PO SCH (17:12)
[2025-07-11] MEDS: NYSTATIN POWDER 15 GM BOTTLE TP SCH (21:27)
[2025-07-11] MEDS: DOCUSATE SODIUM 100 MG CAPSULE PO SCH (21:28)
[2025-07-11] MEDS: ZOLPIDEM 5 MG TABLET PO PRN (22:58)
[2025-07-12 00:49] VITALS: BP 113/68; TEMP 97.8; O2SAT 94
[2025-07-12] MEDS: PANTOPRAZOLE SODIUM 40 MG TABLET.DR PO SCH (06:04)
[2025-07-12 06:55] LABS: PLATELET COUNT (AUTO) 368 K/uL (152-348); RED BLOOD CELL COUNT(AUTO) 4.26 MIL/uL (4.06-5.63); RED CELL DISTRIBUTION WIDTH 14.8 % (12.1-16.2); WHITE BLOOD COUNT (AUTO) 6.6 K/uL (3.6-10.2)
[2025-07-12 07:12] LABS: CREATININE 0.5 mg/dL (0.6-1.3); SODIUM SERUM 143 mmol/L (136-145); UREA NITROGEN, BLOOD 3 mg/dL (7-18)
[2025-07-12 07:33] VITALS: BP 129/75; TEMP 98; O2SAT 96
[2025-07-12] MEDS: ASCORBIC ACID 500 MG TABLET PO SCH (09:13)
[2025-07-12] MEDS: ZINC SULFATE 220 MG CAPSULE PO SCH (09:13)
[2025-07-12] MEDS: MULTIVIT, IRON, MIN NO. 8, FA TABLET PO SCH (09:13)
[2025-07-12] MEDS: CLOTRIMAZOLE/BETAMET DIPROP CREAM 15 GM TUBE TP SCH (09:14)
[2025-07-12] MEDS: TRIAMCINOLONE ACET 0.1% OINT 15 GM TUBE TP SCH (09:17)
[2025-07-12 11:34] VITALS: BP 104/67; TEMP 97.6; O2SAT 95
[2025-07-12] MEDS: OLANZAPINE 10 MG VIAL IM PRN (13:25)
[2025-07-12 15:55] VITALS: BP 92/59; TEMP 97.9; O2SAT 96
[2025-07-12 17:43] VITALS: O2SAT 98
[2025-07-12] MEDS: VANCOMYCIN FOR GT/NG USE PO SCH (18:01)
[2025-07-12 19:35] VITALS: BP 92/57; TEMP 96.6; O2SAT 97
[2025-07-13] VITALS (7 sets, daily range): BP systolic 93–114; BP diastolic 54–66; TEMP 97.8–98.5; O2SAT 91–99
[2025-07-13] MEDS: HALOPERIDOL LACTATE 5 MG/1 ML VIAL IM ONE (01:16)
[2025-07-13] MEDS: LORAZEPAM 2 MG/1 ML VIAL IM ONE (01:16)
[2025-07-13 05:53] LABS: PLATELET COUNT (AUTO) 365 K/uL (152-348); RED BLOOD CELL COUNT(AUTO) 4.29 MIL/uL (4.06-5.63); RED CELL DISTRIBUTION WIDTH 14.6 % (12.1-16.2); WHITE BLOOD COUNT (AUTO) 6.8 K/uL (3.6-10.2)
[2025-07-13 06:01] LABS: CREATININE 0.7 mg/dL (0.6-1.3); SODIUM SERUM 143.0 mmol/L (136-145); UREA NITROGEN, BLOOD 5.0 mg/dL (7-18)
[2025-07-13] MEDS: ARGININE/GLUTAMINE/CALCIUM BMB 1 EACH POWD.PACK PO SCH (09:00)
[2025-07-13] MEDS: ENSURE ENLIVE (VAN) 240 ML LIQUID PO SCH (09:00)
[2025-07-13] MEDS ORDERED: MIRALAX 17 GM POWD.PACK PO PRN (12:15)
[2025-07-13] MEDS: OLANZAPINE ZYDIS 5 MG TAB.RAPDIS PO SCH (12:52)
[2025-07-13] MEDS: DIVALPROEX SPRINKLE 125 MG CAP.SPRINK PO SCH ×2 (17:04→20:30)
[2025-07-14 01:03] VITALS: O2SAT 98
[2025-07-14 04:22] VITALS: BP 97/68; TEMP 97.9; O2SAT 97
[2025-07-14 07:07] LABS: PLATELET COUNT (AUTO) 366 K/uL (152-348); RED BLOOD CELL COUNT(AUTO) 4.35 MIL/uL (4.06-5.63); RED CELL DISTRIBUTION WIDTH 15.0 % (12.1-16.2); WHITE BLOOD COUNT (AUTO) 7.6 K/uL (3.6-10.2)
[2025-07-14 07:27] LABS: CREATININE 0.7 mg/dL (0.6-1.3); SODIUM SERUM 142.0 mmol/L (136-145); UREA NITROGEN, BLOOD 5.0 mg/dL (7-18)
[2025-07-14 07:32] VITALS: BP 118/65; TEMP 97.6; O2SAT 97
[2025-07-14 07:33] LABS: VALPROIC ACID 38 ug/mL (50-100)
[2025-07-14 11:34] VITALS: BP 108/60; TEMP 97.7; O2SAT 96
[2025-07-14] MEDS ORDERED: DIVA125C2 PO ×2 (13:18)
[2025-07-14] MEDS ORDERED: OLAN5TAB6 PO (13:18)
[2025-07-14] MEDS ORDERED: Lactose-Free Food PO (13:18)
[2025-07-14] MEDS ORDERED: CEFE2PIG2 IV (13:18)
[2025-07-14] MEDS ORDERED: NUTR1PAC14 PO (13:18)
[2025-07-14] MEDS ORDERED: VANC500V5 PO (13:18)
[2025-07-14] MEDS ORDERED: METR500P3 IV (13:18)
[2025-07-14] MEDS ORDERED: MERO1PIG IV (14:19)
[2025-07-14 15:44] VITALS: BP 111/60; TEMP 97.5; O2SAT 98
[2025-07-14] MEDS ORDERED: CEFEPIME HCL 2 GM in IV DEXTROSE 5% 100 ML IV SCH (16:00)
== END 2025-07-14 17:45 | DRG 463 ==
LOC: ER 20:20 → UNDOADMIN 07-10 00:13 → TELE3 07-10 00:13 → TELE-TD3 07-10 00:20 → TELE3 07-10 00:20 → UNDOADMIN 07-10 00:20
PROVIDERS: ATTEND Nurse Practitioner Acute Care
PROC: 05HB33Z Insertion of Infusion Device into Right Basilic Vein, Percutaneous Approach (ICD-10-PCS; principal; 2025-07-13)
DX: N39.0 Urinary tract infection, site not specified (principal); G93.41 Metabolic encephalopathy; A04.72 Enterocolitis due to Clostridium difficile, not specified as recurrent; J15.69 Pneumonia due to other Gram-negative bacteria; E44.0 Moderate protein-calorie malnutrition; F05 Delirium due to known physiological condition; L89.156 Pressure-induced deep tissue damage of sacral region; E88.09 Other disorders of plasma-protein metabolism, not elsewhere classified; B96.1 Klebsiella pneumoniae [K. pneumoniae] as the cause of diseases classified elsewhere; I50.9 Heart failure, unspecified; F25.0 Schizoaffective disorder, bipolar type; E87.6 Hypokalemia; J98.11 Atelectasis; Z86.718 Personal history of other venous thrombosis and embolism; Z20.822 Contact with and (suspected) exposure to COVID-19; F03.90 Unspecified dementia, unspecified severity, without behavioral disturbance, psychotic disturbance, mood disturbance, and anxiety; R74.8 Abnormal levels of other serum enzymes; M47.899 Other spondylosis, site unspecified; I25.10 Atherosclerotic heart disease of native coronary artery without angina pectoris; Z68.25 Body mass index [BMI] 25.0-25.9, adult
CPT/HCPCS: 36415; 70450; 71045; 71275; 80164; 83605; 83690; 83735; 84100; 85025; 87040; 87077; 87086; 94760; A4606; A4663; A6213; C1758; G0378; J0692; J1630; J2060; J2358; J2470; J3373; J3480; J3490; J7040; J7042; J7050; Q9967